=== PATIENT | male | born 1955 | race Caucasian/White ===

== ENCOUNTER 2024-08-22 12:48 | Inpatient (IN) | payer OTHER, MEDICARE ==
[~2024-08-22] VITALS: Ht 177.8 cm; Wt 85.2 kg
[2024-08-22 12:55] VITALS: PULSE 96; RESP 23; O2SAT 97
--- NOTE | 2024-08-22 13:03 | Physician Documentation ---
History of Present Illness ~ Chief Complaint: Shortness of Breath Stated Complaint: LOW O2 Time Seen by MD: 12:51 Mode of Arrival: EMS HPI Nurse triage summary Patria LOPEZ patient presenting for shortness of breath wound on back fluid overloaded on BiPAP glucose was 44 given dextrose by EMS Patient unable to give history due to medical condition Medication Reconciliation Allergies: Coded Allergies: carisoprodol (Verified Allergy, Unknown, 08/22/24) Scheduled Aspirin (Aspir 81), 1 TAB PO DAILY, (Reported) Baclofen (Baclofen), 1 TAB PO Q8H, (Reported) Gabapentin (Gabapentin), 1 TAB PO Q8H, (Reported) Magnesium (Magnesium Oxide), 1 TAB PO DAILY, (Reported) Metoprolol Tartrate (Metoprolol Tartrate), 1 TAB PO Q12H, (Reported) Paroxetine HCl (Paroxetine HCl), 1 TAB PO DAILY, (Reported) Sodium Chloride (SODIUM CHLORIDE tablet), 1 TAB PO Q12H, (Reported) Scheduled PRN Oxycodone Hcl/Acetaminophen 5/325 MG* (Percocet 5/325 MG*), 1 TAB PO TID PRN PRN for pain, (Reported) Miscellaneous Medications Daptomycin (Daptomycin), (Reported) Pantoprazole Sodium (Protonix), 40 MG PO, (Reported) Risperidone (Risperdal), 2 MG PO, (Reported) Review of Systems Unable to obtain complete ROS: altered mental status, medical urgency Physical Exam Vital Signs: Temperature: 97.1, Source: Axillary, Heart Rate: 96, Respiratory Rate: 38, BP: 115/65, Pulse Oximetry: 97, Weight: 72.000 Oxygen Flow Rate: 0 Physical Exam Toxic appearing Diffuse rhonchi Respiratory distress Abdomen is soft nontender MSK open surgical wounds on his back no surrounding cellulitis, serosanguineous drainage Neuro fatigued, arousable moving all extremities Progress Progress Note I Discussed case with Infectious Disease Dr. Minor he is recommending switching daptomycin to vancomycin adding cefepime for hospital-acquired pneumonia I discussed the case with Dr. Mao who is the treating physician at [facility] he reports that the patient was having increasing O2 requirements despite greater than 12 hours on BiPAP and that he does not think the patient is stable enough to return to his facility Results/Orders Results/Orders Orders - MICHEL DEL RIO MD Bipap/Cpap (08/22/24 ) Abg (Arterial Blood Gas) (08/22/24 ) Chest,Single View (08/22/24 ) Culture Blood (08/22/24 13:04) Monitor (08/22/24 13:04) Oxygen (08/22/24 13:04) Saline Lock (08/22/24 13:04) Abg (Arterial Blood Gas) (08/22/24 14:10) Cult Urine + [place] [address] (08/22/24 13:59) Page Hospitalist (08/22/24 16:39) Fill Out Med Reconciliation (08/22/24 16:39) Completed Orders - MICHEL DEL RIO MD Chest,Single View (08/22/24 ) Cbc/Diff (08/22/24 13:04) Procalcitonin (08/22/24 13:04) BMP (08/22/24 13:04) Lacticsepsis (08/22/24 13:04) PBNP (08/22/24 13:15) Troponin (Single) (08/22/24 13:15) Ua W/Microscopic, Cult If Ind (08/22/24 13:12) MG (08/22/24 13:00) PHOS (08/22/24 13:00) Medications Received in ER Medications (Trade) Dose Ordered Sig/Anabella Route PRN Reason Start Time Stop Time Status Last Admin Dose Admin Sodium Chloride 1,000 ml @ 100 mls/hr Q10H IV 08/22/24 17:05 08/22/24 18:00 100 MLS/HR Vital Signs 08/22/24 08/22/24 08/22/24 08/22/24 12:49 12:55 12:56 12:56 Temp 97.1 Pulse 100 96 90 Resp 38 23 26 28 B/P (MAP) 115/65 108/54 (72) Pulse Ox 85 97 97 93 O2 Delivery BiPAP+ O2 Flow Rate 0 FiO2 70 70 70 08/22/24 08/22/24 08/22/24 08/22/24 12:56 14:00 14:45 14:58 Pulse 88 90 89 Resp 38 22 23 27 23 B/P (MAP) 90/54 (66) 101/61 (74) Pulse Ox 98 99 98 FiO2 70 08/22/24 08/22/24 15:30 16:30 Pulse 89 81 Resp 22 22 B/P (MAP) 111/60 (77) 110/66 (81) Pulse Ox 97 98 Laboratory Tests Test 08/22/24 13:00 08/22/24 13:12 08/22/24 14:37 White Blood Count 18.5 H Red Blood Count 2.88 L Hemoglobin 8.1 L Hematocrit 24.5 L Mean Corpuscular Volume 85.4 Mean Corpuscular Hemoglobin 28.1 Mean Corpuscular Hemoglobin Concent 32.9 L Red Cell Distribution Width 16.4 H Platelet Count 360 Mean Platelet Volume 6.8 L Neutrophils (%) (Auto) 93.2 H Lymphocytes (%) (Auto) 2.3 L Monocytes (%) (Auto) 4.3 Eosinophils (%) (Auto) 0 Basophils (%) (Auto) 0.2 Neutrophils # (Auto) 17.3 H Lymphocytes # (Auto) 0.4 L Monocytes # (Auto) 0.8 Eosinophils # (Auto) 0.0 Basophils # (Auto) 0.0 CBC Comment Platelet Estimate Normal Red Blood Cell Morphology Perf Basophilic Stippling Anisocytosis 1+ [place] Cells 2+ Acanthocytes Few Blood Gas Specimen Type Arterial Arterial Blood Gas Puncture Site Lr Rr O2 Saturation 95.2 95.1 Arterial Blood pH (Temp corrected) 7.233 *L 7.313 L Arterial Blood pCO2 (Temp correct) 45.3 38.2 Arterial Blood pO2 (Temp corrected) 83.5 78.1 L Arterial Blood PO2/FiO2 Ratio 1.15 1.08 Arterial Blood HCO3 18.6 L 18.8 L Arterial Blood Base Excess -8.3 L -6.7 L Arterial Blood Oxyhemoglobin 94.7 94.4 Arterial Blood Carboxyhemoglobin 0.2 L 0.4 L Arterial Blood Methemoglobin 0.3 0.3 Arterial Blood Deoxyhemoglobin 4.8 4.9 Naseem Test Modified Modified Blood Gas Hemoglobin 9.2 L 8.7 L Blood Gas Temperature 37.5 37.5 Blood Gas Set Respiration Rate 10 Blood Gas Modality Mask - bipap Mask - bipap FiO2 70.0 70.0 Blood Gas Critical Value Called To dr del rio Sodium Level 126 L Potassium Level 4.6 Chloride Level 98 L Carbon Dioxide Level 21.0 L Anion Gap 7 L Blood Urea Nitrogen 49 H Creatinine 1.28 H Estimated GFR/1.73 m2 56 BUN/Creatinine Ratio 38.3 H Glucose Level 74 Lactic Acid Level 1.0 Calcium Level 7.6 L Phosphorus Level 5.2 H Magnesium Level 1.7 Troponin I High Sensitivity 13 Pro-B-Type Natriuretic Peptide 9277 H Albumin 1.0 L Procalcitonin 2.47 H Chemistry Comments Urine Specimen Description Non-specified Urine Color Yellow Urine Clarity Clear Urine pH 6.0 Urine Specific [place]ovray 1.010 Urine Protein 30 H Urine Glucose (UA) Negative Urine Ketones Negative Urine Occult Blood Moderate H Urine Nitrite Negative Urine Bilirubin Negative Urine Urobilinogen 0.2 Urine Leukocyte Esterase Trace H Urine RBC 10-20 Urine WBC 5-10 H Urine Squamous Epithelial Cells Few Urine Transitional Epithelial Cells Few Urine Bacteria 2+ Urine Hyaline Casts 0-3 Urine Fine Granular Casts 3-5 Urine Yeast Moderate Urine Culture Indicated Indicated Volume Urine Centrifuged 10 ml Urine Comment Microbiology Date/Time Source Procedure Growth Status 08/22/24 13:59 Urine Nonspecified Urine Culture - Preliminary Culture received. Resulted 08/22/24 13:54 Blood Hand Left Blood Culture - Preliminary NEGATIVE (LESS THAN 24 HOURS) Resulted Medical Decision Making Additional info obtained from: old records Additional Infomation CHF, COPD, pneumonia Departure Disposition: ADMITTED INPATIENT Admitted to Inpatient Unit: to hospitalist Impression: Primary Impression: Pneumonia Qualified Codes: J18.9 - Pneumonia, unspecified organism Additional Impression: Respiratory failure Qualified Codes: J96.21 - Acute and chronic respiratory failure with hypoxia Referrals: NO PRIMARY CARE PROVIDER (PCP) Critical Care Note Total Time (mins): 45 Critical Care Note The very real possibility of a deterioration of this patient's condition required the highest level of my preparedness for sudden, emergent intervention. I provided critical care services, which included medication orders, frequent reevaluations of the patient's condition and response to treatment, ordering and reviewing test results, and discussing the case with various consultants. Excludes time spent performing separately billable procedures. The critical care time associated with the care of the patient was 45 minutes in the management of acute hypoxic respiratory failure and pneumonia requiring rescue BiPAP Signature Scribe Signature: jeri Attestation: MICHEL Mir MD August 22, 2024 13:03
[2024-08-22 13:05] LABS: ABG BASE EXCESS -8.3 mmol/L (-2.0-3.0); ABG HCO3 18.6 mmol/L (21.0-28.0); ABG OXYGEN SATURATION 95.2 % (94.0-98.0); ABG PCO2 (T) 45.3 mmHg (35.0-48.0); ABG PH (T) 7.233 (7.350-7.450); ABG PO2 (T) 83.5 mmHg (83.0-108.0); ALLEN'S TEST Modified; FCOHb 0.2 % (0.5-1.5); FHHb 4.8 % (0.0-5.0); FMetHb 0.3 % (0.0-1.5); FO2Hb 94.7 % (94.0-98.0); MODE MASK - BIPAP; PATIENT TEMPERATURE 37.5; RESPIRATORY RATE 10 b/min; TOTAL HEMOGLOBIN 9.2 G/dl (13.5-17.5)
[2024-08-22 13:21] LABS: HEMOGLOBIN 8.1 g/dl (14.0-17.9); MEAN PLATELET VOLUME 6.8 FL (7.4-10.4); RED CELL DISTRIBUTION WIDTH 16.4 % (11.5-14.5); WHITE BLOOD COUNT 18.5 X10'3 (4.5-11.0)
[2024-08-22 13:26] LABS: BASOPHILS % (AUTO) 0.2 % (0-1); EOSINOPHILS % (AUTO) 0 % (0-6); HEMATOCRIT 24.5 % (42.0-52.0); LYMPHOCYTES # (AUTO) 0.4 X10'3 (1.1-4.8); LYMPHOCYTES % (AUTO) 2.3 % (21-51); MEAN CORPUSCULAR HEMOGLOBIN 28.1 PG (27.0-31.0); MEAN CORPUSCULAR HGB CONC 32.9 g/dL (33.0-36.5); MEAN CORPUSCULAR VOLUME 85.4 FL (78-98); MONOCYTES # (AUTO) 0.8 X10'3 (0-0.9); MONOCYTES % (AUTO) 4.3 % (2-12); NEUTROPHILS # (AUTO) 17.3 X10'3 (1.8-7.7); NEUTROPHILS % (AUTO) 93.2 % (42-75); PLATELET COUNT 360 X10'3 (140-440); RED BLOOD COUNT 2.88 X10'6 (4.70-6.10)
[2024-08-22 13:38] LABS: BILIRUBIN,URINE NEGATIVE (Neg); CLARITY,URINE CLEAR (Clear); COLOR,URINE YELLOW (Yellow); GLUCOSE, URINE NEGATIVE (Neg); KETONES,URINE NEGATIVE (Neg); LEUKOCYTE ESTERASE ,URINE TRACE (Neg); NITRITES, URINE NEGATIVE (Neg); OCCULT BLOOD,URINE MODERATE (Neg); PROTEIN,URINE 30 mg/dl (Neg); UROBILINOGEN,URINE 0.2 E.U/dL (0.2-1.0)
--- NOTE | 2024-08-22 13:42 | RADIOLOGY REPORT ---
EXAM: DI CHEST,SINGLE VIEW Indication: sob Technique: Single frontal view of the chest was obtained Comparison: None FINDINGS: Lines and Tubes: Right PICC tip projects over the superior vena cava Lungs: Multifocal consolidative opacities. Pleura: No effusion. No pneumothorax. Cardiomediastinal contours: Unremarkable Bones: No acute osseous abnormality. IMPRESSION: Multifocal consolidative opacities.
[2024-08-22 13:55] LABS: UA COLLECTION TYPE NON-SPECIFIED
[2024-08-22 13:57] LABS: ANION GAP 7 (8-16); BLOOD UREA NITROGEN 49 MG/DL (7-18); BUN/CREATININE RATIO 38.3 (10.0-20.0); CALCIUM 7.6 MG/DL (8.5-10.1); CHLORIDE 98 MMOL/L (99-107); CREATININE 1.28 MG/DL (0.60-1.10); GLUCOSE 74 MG/DL (70-104); POTASSIUM 4.6 MMOL/L (3.5-5.1); PRO BRAIN NATRIURETIC PEPTIDE 9277 PG/ML (0-125); SODIUM 126 MMOL/L (135-145); eCRCL 48 ML/MIN; eGFR 56 ML/MIN
[2024-08-22 13:58] LABS: BACTERIA,URINE 2+ /HPF (Neg); SQUAMOUS EPITHELIAL CELL,UR FEW /LPF (FEW); TRANSITIONAL EPI CELLS,URINE FEW /HPF
[2024-08-22 13:59] LABS: HYALINE CASTS 0-3 /LPF (NEGATIVE); YEAST MODERATE /HPF (NEGATIVE)
[2024-08-22 14:05] LABS: PLATELET ESTIMATE NORMAL
[2024-08-22 14:06] LABS: ACANTHOCYTES FEW; ANISOCYTOSIS 1+; BURR CELLS 2+
[2024-08-22 14:42] LABS: ABG BASE EXCESS -6.7 mmol/L (-2.0-3.0); ABG HCO3 18.8 mmol/L (21.0-28.0); ABG OXYGEN SATURATION 95.1 % (94.0-98.0); ABG PCO2 (T) 38.2 mmHg (35.0-48.0); ABG PH (T) 7.313 (7.350-7.450); ABG PO2 (T) 78.1 mmHg (83.0-108.0); ALLEN'S TEST Modified; FCOHb 0.4 % (0.5-1.5); FHHb 4.9 % (0.0-5.0); FMetHb 0.3 % (0.0-1.5); FO2Hb 94.4 % (94.0-98.0); MODE MASK - BIPAP; PATIENT TEMPERATURE 37.5; TOTAL HEMOGLOBIN 8.7 G/dl (13.5-17.5)
[2024-08-22 14:45] VITALS: PULSE 90; RESP 23; O2SAT 99
[2024-08-22] MEDS ORDERED: SODI1TAB2 PO (16:56)
[2024-08-22] MEDS ORDERED: PER5325T PO (16:56)
[2024-08-22] MEDS ORDERED: GABA-1405 PO (16:56)
[2024-08-22] MEDS ORDERED: PARO40TA4 PO (16:56)
[2024-08-22] MEDS ORDERED: MAGN200T5 PO (16:56)
[2024-08-22] MEDS ORDERED: DAPT500V18 IV (16:56)
[2024-08-22] MEDS ORDERED: RISP2TAB97 PO (16:56)
[2024-08-22] MEDS ORDERED: BACL10TA2 PO (16:56)
[2024-08-22] MEDS ORDERED: PANT40SU2 PO (16:56)
[2024-08-22] MEDS ORDERED: METO25TA6 PO (16:56)
[2024-08-22] MEDS ORDERED: ASPI-611 PO (16:56)
[2024-08-22] MEDS ORDERED: potassium Cl 20 mEq SR tablet PO PRN ×2 (17:05)
[2024-08-22] MEDS ORDERED: magnesium hydroxide 30ml (MOM) UD suspension PO PRN (17:05)
[2024-08-22] MEDS ORDERED: potassium Cl 40MEQ/1/2NS 520ml 520 ML IV PRN (17:05)
[2024-08-22] MEDS ORDERED: bisacodyl 10mg suppository rectal RC PRN (17:05)
[2024-08-22] MEDS ORDERED: ondansetron 4mg rapidly disintigrating tab PO PRN (17:05)
[2024-08-22] MEDS ORDERED: diphenhydrAMINE 25mg capsule PO PRN (17:05)
[2024-08-22] MEDS ORDERED: acetaminophen 325mg tablet PO PRN ×2 (17:05)
[2024-08-22] MEDS ORDERED: ipratropium/albuterol 3ml nebule NEB PRN (17:05)
[2024-08-22] MEDS ORDERED: magnesium sulf-water 4G/100mL 100 ML IV PRN (17:05)
[2024-08-22] MEDS ORDERED: acetaminophen 650mg rectal suppository RC PRN (17:05)
[2024-08-22] MEDS ORDERED: mag hydrox/Alum hydrox/simeth 30ml oral suspension PO PRN (17:05)
[2024-08-22] MEDS ORDERED: magnesium sulf-water 2g/50mL 50 ML IV PRN (17:05)
[2024-08-22] MEDS ORDERED: HYDROcodone/acetaminophen 10/325mg tab PO PRN (17:05)
[2024-08-22] MEDS ORDERED: diphenhydrAMINE 50 mg/ml inj IV PRN (17:05)
[2024-08-22] MEDS ORDERED: morphine 2 MG/ML inj. syringe IV PRN (17:05)
[2024-08-22] MEDS ORDERED: magnesium Cl slow-release 64mg tablet PO PRN (17:05)
[2024-08-22] MEDS ORDERED: HYDROcodone/acetaminophen 5mg/325mg tablet PO PRN (17:05)
[2024-08-22] MEDS ORDERED: ondansetron/PF 4mg/2ml inj IV PRN (17:05)
--- NOTE | 2024-08-22 17:05 | HISTORY AND PHYSICAL ---
History & Physical Providers to Chief complaint, shortness of breath ~ History of Present Illness Reason for Admit\Complaint: As above History of Present Illness This is a 69 years old gentleman with a history of multiple medical problems including anemia hemoglobin 8.1, history of chronic kidney disease, diabetes mellitus type 2, hypertension, CHF ejection fraction unknown, hypoalbuminemia, chronic pain syndrome, hypertension over treated, associated now with hypovolemia and hypotension, history of GERD, diabetes mellitus type 2, presented today to emergency department chief complaint shortness of breath; in addition this is the patient who according to Nurse triage summary Patria LOPEZ patient presenting for shortness of breath wound on back fluid overloaded on BiPAP glucose was 44 given dextrose by EMS. In emergency department he was evaluated by physician, was diagnosed with sepsis bilateral pneumonia started on BiPAP and decision was made to admit patient for further evaluation and treatment. No additional complaint or concern Dr. so infectious Disease was consulted patient started on vancomycin and cefepime. Allergies: Coded Allergies: carisoprodol (Verified Allergy, Unknown, 08/22/24) Active prescriptions I reviewed reconciled Home Medications Home Medications Active Reported SODIUM CHLORIDE tablet (Sodium Chloride) 1,000 Mg Tablet 1 Tab PO Q12H 30 Days Risperdal (Risperidone) 2 Mg Tablet 2 Mg PO Paroxetine HCl 40 Mg Tablet 1 Tab PO DAILY 30 Days Protonix (Pantoprazole Sodium) 40 Mg Suspdr.pkt 40 Mg PO Percocet 5/325 MG* (Oxycodone/Acetaminophen) 5 Mg/325 Mg Tablet 1 Tab PO TID PRN PRN 5 Days Metoprolol Tartrate 25 Mg Tablet 1 Tab PO Q12H 30 Days Magnesium Oxide (Magnesium) 200 Mg Tablet 1 Tab PO DAILY 30 Days Gabapentin 600 Mg Tablet 1 Tab PO Q8H 30 Days Daptomycin 500 Mg Vial Baclofen 10 Mg Tablet 1 Tab PO Q8H 30 Days Aspir 81 (Aspirin) 81 Mg Tablet. 1 Tab PO DAILY 30 Days Past Medical History Past Medical History As in HPI Past Surgical History Surgical History Comment As in HPI Past Social History Social History Comment Deny illicit drug abuse tobacco alcohol use live with the family good social support Health Maintenance Health Maintenance Noncontributory ROS ROS Constitutional : no fever , no chills, or weakness. No diaphoresis. Allergic/Immunologic, no lymphadenopathy, no hives, no skin eruptions. Eyes, no recent visual changes, no eye pain, no photophobia. Ears, nose, mouth, throat, no sore throat, no nosebleed, no ear pain. Cardiovascular, no palpitations, skipped beats, chest pain, no peripheral edema, Respiratory, positive for dyspnea, orthopnea, cough, no hemoptysis, chest wall pain. Gastrointestinal, no abdominal pain, nausea, vomiting, constipation or diarrhea. : no dysuria, hematuria, pelvic pain, urethral d/c. Endocrine, no polyuria, polydipsia, recent unintentional weight gain or loss. Hematologic/Lymphatic, no petechiae, no enlarged lymph nodes, no bone pain. Integumentary, no rash, no skin lesions, Musculoskeletal, no muscle aches, or pain, no muscle cramps, no recent change in gait Neurological, no dizziness, no headache, no syncope, no paresthesia. Psychiatric, no delusions, visual hallucinations, or hearing hallucinations. ROS - in rest is as in HPI. Exam Vitals: Vital Signs Date Time Temp Pulse Resp B/P (MAP) Pulse Ox O2 Delivery O2 Flow Rate FiO2 08/22/24 16:30 81 22 110/66 (81) 98 08/22/24 14:45 70 08/22/24 12:56 BiPAP+ 08/22/24 12:49 97.1 0 Vital signs, stable ,afebrile. Pulse Oximetry reflects adequate oxygenation on BiPAP, FiO2 70%. BMI is 26, weight 72 kg General: well developed, well nourished. Awake , alert, and oriented x4, resting comfortably in the bed, in no acute distress . Skin: Warm, dry, no pallor, no rash or petechiae. HEENT: Atraumatic, normocephalic, EOMI, anicteric sclera B; pink conjunctiva; PERRLA, normal oropharynx, moist oral and nasal mucosa. Tympanic membrane , nose , throat clear. Neck: Trachea midline. Supple, full range of motion, no JVD, bruit , hepatojugular reflex , lymphadenopathy or masses, or other lesions Cardiac: Regular rhythm, regular rate no murmurs, rubs, or gallops. Normal S1 and S2, no S3 noticed. PMI is normal. Respiratory: Equal breath sounds bilaterally, no tachypnea; lungs clear to auscultation bilaterally, no wheezing ,rub or rales, or crackles. Chest wall is symmetric and without deformity. No signs of trauma. Chest wall is nontender. No signs of respiratory distress. Resonance is normal upon percussion bilaterally. Gastrointestinal: Abdomen symmetric, non-distended, soft, non-tender, normal bowel sounds x4 quadrant, normoactive, no hepatosplenomegaly , no masses , no bruit, no flank pain bilaterally. No voluntary guarding, rebound, or rigidity. No tenderness to percussion. No pulsatile masses. Equal femoral pulses. No Bautista's sign or McBurney point tenderness. Back; no CVA tenderness bilaterally, no deformities. Neck and back are without deformity as well. No tenderness noted on palpation of the spinous processes. Spinous processes are midline. Cervical, thoracic, and lumbar paraspinal muscles are not tender and are without spasm. : normal external genitalia, without lesions, swelling, masses or tenderness. Musculoskeletal: Extremities, normal range of motion, non-tender, muscle strength 5/5 x 4. Negative Homans signs bilaterally on lower extremity. Distal pulses full symmetrical, no clubbing, cyanosis , edema. Neurological: Speech is clear, alert, and oriented x 4. No motor or sensory deficit, deep tendon reflexes normal, cerebellar intact. Cranial nerves II-XII intact. Psych: Alert and or appropriate, normal affect. Vascular: Good distal pulses, which are equal x4; capillary refill less than 2 seconds. Lymphatic, no lymphadenopathy. Diagnostic Data Last Recorded Lab Results: 08/22/24 1300 08/22/24 1300 Advance Care Planning Advanced Care plannin - 30 Minutes Additional Plan Assessment Bilateral pneumonia, community-acquired mixed kenneth Gram-positive Gram-negative Sepsis Diabetes mellitus type 2 poor control Acute respiratory failure secondary to hypoxia Hyponatremia UTI complicated A right side posterior chest abscess CHF ejection fraction unknown in exacerbation Hypovolemia associated with hypotension Chronic pain syndrome Additional comorbidities, history of chronic kidney disease anemia hemoglobin 8.1 decubitus hypo glycemia, Plan IV fluids antibiotics keep patient well hydrated euvolemic Hyperglycemia sliding scale Patient is on BiPAP SVN DuoNeb, incentive spirometry Correct electrolytes Wound care consult Echocardiography pending PT evaluation and treatment Dr. So infectious disease is on the case Reconciled home medications DVT gastropathy prophylaxis addressed Sepsis Screening Reassessment Date: August 22, 2024 Date of Service: August 22, 2024 Billing Provider: VIRGILIO STEVENS MD Common Visit Codes: 38110-EZA/OBS SAME DATE (HIGH) Secondary Visit Codes: 96249-ZDGAWPQN CARE PLAN 30 MINUTES VIRGILIO STEVENS MD August 22, 2024 17:05
[2024-08-22] MEDS ORDERED: glucagon, human recombinant 1mg kit SUBCUT PRN (17:45)
[2024-08-22] MEDS ORDERED: DEXTROSE 15 GM of carb/4 tabs (each vial/BOTTLE has 4 tablets) PO PRN ×2 (17:45)
[2024-08-22 17:50] LABS: MAGNESIUM 1.7 MG/DL (1.5-2.4); PHOSPHORUS 5.2 MG/DL (2.3-4.5)
[2024-08-22] MEDS: INSULIN LISPRO 100 UNIT/ML INSULN.PEN MULTI-DOSE SQ SCH ×2 (17:59→21:00)
[2024-08-22] MEDS: normal saline 1000ml 1,000 ML IV SCH (18:00)
[2024-08-22] MEDS: VANCOMYCIN 1.75GM/WATER FOR INJ (PEG) 350 ML IVPB IV ONE (18:11)
[2024-08-22 18:51] LABS: APTT 36 SECONDS (22-32); PROTHROMBIN TIME 10.5 SECONDS (9.0-12.0)
[2024-08-22 19:35] VITALS: PULSE 88; RESP 28; O2SAT 98
[2024-08-22] MEDS: docusate sod 100mg capsule PO SCH (20:00)
[2024-08-22] MEDS ORDERED: VANCOMYCIN 1GM 200ML H20 (PEG) 200 ML IV SCH (20:00)
[2024-08-22] MEDS: K and/or MAG REPLACEMENT MC SCH (20:00)
[2024-08-22 20:46] LABS: THYROID STIMULATING HORMONE 1.83 ulU/ml (0.34-4.50)
[2024-08-22] MEDS ORDERED: temazepam 15mg capsule PO PRN (21:00)
[2024-08-22] MEDS: dextrose 50%-water 50ml dispensing syringe IV PRN ×2 (21:18→21:21)
[2024-08-22] MEDS: cefepime 1GM in D5W 50mL 50 ML IV SCH (21:22)
[2024-08-22] MEDS: heparin, porcine 5000 units/ml vial SQ SCH (21:23)
--- NOTE | 2024-08-22 21:30 | RADIOLOGY REPORT ---
Clinical History sepsis Comparison None Technique: All CT scans at this medical facility are performed using dose modulation techniques as appropriate t o a performed exam including the following: Automated exposure control was utilized; adjustment of th e mA and/or kV according to patient size; and use of iterative reconstruction technique. All CT studies are reported to the Dose Index Registry of the [employer]. Without Contrast Radiation Dose: CTDI (mGy): 17.4; DLP (mGy-cm): 686.02 STERLINGJEFFRY, [id number] Findings: license examiner: none Mediastinum: Multiple borderline enlarged mediastinal and hilar lymph nodes, the largest measures 1 c m, likely representing reactive lymph nodes. Atherosclerotic calcification of coronary arteries. Th e major mediastinal vascular structures are otherwise unremarkable. The heart and pericardium are unr emarkable. The esophagus is unremarkable. Thoracic wall: Bilateral lower thoracic and upper abdominal posterior wall skin laceration with subcu taneous emphysema, clinical correlation to evaluate for large stress ulcer is recommended. Superfici al subcutaneous soft tissue edema. Bilateral gynecomastia. Lungs: Extensive bilateral multifocal pulmonary groundglass and consolidative opacities with air bron chograms. Mild right and small left pleural effusion with adjacent atelectasis. The major airways a re unremarkable. No pneumothorax. Upper abdomen: Nodular hepatic surface. Multiple calcified gallstones. Diffuse pancreatic atrophy. Ascites Musculoskeletal: No acute osseous abnormality. Postsurgical changes related to lower thoracolumbar p osterior fusion. Degenerative changes of the imaged skeleton. Impression: Extensive multifocal bilateral pneumonia. Bilateral lower thoracic and upper abdominal posterior wall skin laceration with subcutaneous emphyse ma, clinical correlation to evaluate for large stress ulcer is recommended This report was electronically signed by Heidi Montana MD on 08/22/2024 9:28:11 PM.
[2024-08-22 23:17] VITALS: PULSE 99; O2SAT 93
[2024-08-22] MEDS: morphine 2 MG/ML inj. syringe IV PRN (23:28)
[2024-08-23] VITALS (34 sets, daily range): BP systolic 84–137; BP diastolic 40–70; PULSE 83–104; RESP 24–31; O2SAT 94–100
[2024-08-23] MEDS: albumin (human) 25% 100 ML IV solution IV ONE ×2 (00:01→03:31)
[2024-08-23] MEDS: normal saline 1000ml 1,000 ML IV ONE (00:36)
[2024-08-23 01:09] LABS: ABG BASE EXCESS -8.8 mmol/L (-2.0-3.0); ABG HCO3 16.9 mmol/L (21.0-28.0); ABG OXYGEN SATURATION 93.4 % (94.0-98.0); ABG PCO2 (T) 36.1 mmHg (35.0-48.0); ABG PO2 (T) 69.8 mmHg (83.0-108.0); FCOHb 0.8 % (0.5-1.5); FHHb 6.5 % (0.0-5.0); FMetHb 0.3 % (0.0-1.5); FO2Hb 92.4 % (94.0-98.0); MODE MASK - BIPAP; PATIENT TEMPERATURE 37.2; RESPIRATORY RATE 10 b/min
[2024-08-23 02:09] LABS: BASOPHILS % (AUTO) 0.1 % (0-1); EOSINOPHILS % (AUTO) 0 % (0-6); HEMATOCRIT 22.6 % (42.0-52.0); HEMOGLOBIN 7.4 g/dl (14.0-17.9); LYMPHOCYTES # (AUTO) 0.6 X10'3 (1.1-4.8); LYMPHOCYTES % (AUTO) 3.4 % (21-51); MEAN CORPUSCULAR HEMOGLOBIN 28.3 PG (27.0-31.0); MEAN CORPUSCULAR HGB CONC 32.5 g/dL (33.0-36.5); MEAN CORPUSCULAR VOLUME 86.9 FL (78-98); MEAN PLATELET VOLUME 6.6 FL (7.4-10.4); MONOCYTES % (AUTO) 5.6 % (2-12); NEUTROPHILS # (AUTO) 15.7 X10'3 (1.8-7.7); NEUTROPHILS % (AUTO) 90.9 % (42-75); PLATELET COUNT 319 X10'3 (140-440); RED CELL DISTRIBUTION WIDTH 16.7 % (11.5-14.5); WHITE BLOOD COUNT 17.3 X10'3 (4.5-11.0)
[2024-08-23] MEDS ORDERED: ipratropium/albuterol 3ml nebule NEB PRN (02:10)
[2024-08-23 02:26] LABS: ALANINE AMINOTRANSFERASE 23 U/L (12-78); ALBUMIN 1.4 G/DL (3.4-5.0); ALBUMIN/GLOBULIN RATIO 0.3 (1.1-1.5); ALKALINE PHOSPHATASE 200 IU/L (46-116); ANION GAP 12 (8-16); ASPARTATE AMINO TRANSFERASE 15 U/L (10-37); BILIRUBIN,TOTAL 0.3 MG/DL (0.1-1.0); BLOOD UREA NITROGEN 48 MG/DL (7-18); CALCIUM 7.5 MG/DL (8.5-10.1); CHLORIDE 98 MMOL/L (99-107); CREATININE 1.37 MG/DL (0.60-1.10); GLUCOSE 97 MG/DL (70-104); MAGNESIUM 1.7 MG/DL (1.5-2.4); POTASSIUM 4.4 MMOL/L (3.5-5.1); SODIUM 129 MMOL/L (135-145); TOTAL CARBON DIOXIDE 18.9 MMOL/L (24-32); TOTAL PROTEIN 5.5 G/DL (6.4-8.2); eCRCL 45 ML/MIN; eGFR 52 ML/MIN
[2024-08-23 03:23] LABS: OSMOLALITY 275 MOSM/K (280-300)
[2024-08-23] MEDS: furosemide 40mg/4ml inj IV ONE (03:31)
[2024-08-23] MEDS: ipratropium/albuterol 3ml nebule NEB SCH (03:42)
[2024-08-23] MEDS: sodium bicarbonate (8.4%) inj. 150 MEQ in dextrose 5%-water 1,000 ML IV SCH (03:50)
[2024-08-23 04:01] LABS: % IRON SATURATION 5 % (11-46); IRON 5 UG/DL (53-167); TOTAL IRON BINDING CAPACITY 107 UG/DL (259-388)
[2024-08-23 04:03] LABS: SODIUM,URINE RANDOM < 15 MEQ/L; TOTAL PROTEIN,URINE RANDOM 226.1 MG/DL
[2024-08-23 04:05] LABS: FERRITIN 210 NG/ML (26-388)
--- NOTE | 2024-08-23 04:08 | PROGRESS NOTE ---
Progress Note Dictate Providers to CC ~Patient called by residents due to worsening respiratory status. Patient previously admitted to the medical floor and was boarding in the ED at that time. Evaluated with the help of residents and RN with HIPAA compliant A/V technology that was two-way communicating. Progress Note: Reviewed H&P by the resident's team. Reviewed labs. Has leukocytosis white count of 17K Hemoglobin down at 7.4 normal platelets. Sodium down at 129 BUN/creatinine 48 and 1.37. Interestingly his albumin is only 1.4 with an alkaline phosphatase of 200. No hypercalcemia noted. Urine has RBCs WBCs and proteins. Most recent ABG showed metabolic acidosis with hypoxia 7.29 and PaO2 of 70. I reviewed chest x-ray and CAT scan. Antibiotic Ordered?: N/A MRSA Education MRSA Education Provided to pt: N/A Objective Vitals Vital Signs Date Time Temp Pulse Resp B/P (MAP) Pulse Ox O2 Delivery O2 Flow Rate FiO2 08/23/24 03:49 98 24 Bi-pap 80 08/23/24 03:46 97 08/23/24 02:45 100/51 (67) 08/23/24 00:06 98.0 08/22/24 12:49 0 Lab Results: 08/23/24 0157 08/23/24 0157 Objective Was having increased work of breathing. But was able to obey commands. He appeared very pale He was on BiPAP He has appeared swollen. His cardiac rhythm seems normal Coagulation Studies Laboratory Tests Test 08/22/24 18:16 Prothrombin Time 10.5 SECONDS (9.0-12.0) INR International Normalized Ratio 1.0 INR Activated Partial Thromboplast Time 36 SECONDS (22-32) H Coagulation Comments Counseling Services Smoking & Tobacco Cessation: N/A Advance Care Planning Advanced Care planning: N/A Problem\Assessment\Plan Additional Plan 1. Sepsis 2. Multifocal pneumonia 3. Decubiti lower back 4. Anemia of chronic disease 5. Hyponatremia 6. NICHOLAS 7. Leukocytosis 8. Metabolic acidosis Plan He will be admitted to the intensive care unit. Will continue BiPAP support and add a low-dose of Precedex to improve with his work of breathing and when comfort. Surgical evaluation/wound care evaluation for the decubiti Continue on broad-spectrum antibiotics as now. Gently hydrate with bicarb drip At 50 mL/h May need diuretic support if blood pressure tolerates and urine output does not diamond picker with conservative care Type and cross and may need transfusion if anemia worsens Will will need conversation with family regarding goals of care May require intubation if respiratory status worsens. Discussed with the team. Talked to the ICU nurses also updated on my plan. ANANDA MINAYA MD August 23, 2024 04:08
[2024-08-23 04:22] LABS: OSMOLALITY UA 320 MOSM/K (50-1400)
--- NOTE | 2024-08-23 04:27 | RADIOLOGY REPORT ---
EXAM: DI CHEST,SINGLE VIEW HISTORY: central line COMPARISON: DI CHEST,SINGLE VIEW on DOS: 08/22/24, chest CT dated 08/22/2024 TECHNIQUE: Portable semi-erect AP view of the chest was performed. FINDINGS: There are diffuse extensive bilateral pulmonary infiltrates, similar to that seen previously. No pneu mothorax. The heart is not enlarged. There has been interval placement of a right IJ central line wit h its tip in the SVC -RA junction. Right upper extremity PICC line and postoperative changes of thor acolumbar posterior fusion are re-identified. There are skin venkata overlying the midline chest. IMPRESSION: 1. Diffuse bilateral pulmonary infiltrates consistent with pneumonia, similar to that seen on chest i maging from the previous day. 2. New right IJ central line in good position without pneumothorax.
[2024-08-23] MEDS: vancomycin/NS 1 GM ADD-VANTAGE 250 ML IV SCH (06:43)
[2024-08-23] MEDS: pantoprazole 40mg Tablet.DR PO SCH (07:28)
[2024-08-23] MEDS ORDERED: rocuronium 10mg/ml inj IV ONE (08:00)
[2024-08-23] MEDS: etomidate 2mg/ml inj. IV ONE (11:25)
[2024-08-23] MEDS: rocuronium 10mg/ml inj IV ONE (11:25)
[2024-08-23] MEDS: propofol 1000mg/100ml bottle 100 ML IV SCH (11:25)
[2024-08-23] MEDS: FENTANYL-0.9 % NACL/PF 100 ML IV SCH (11:25)
[2024-08-23] MEDS: NORepinephrine 8mg/ 250ml NS 250 ML IV ONE (11:33)
--- NOTE | 2024-08-23 12:07 | RADIOLOGY REPORT ---
CHEST RADIOGRAPH Indication: POST INTUBATION Technique: Single frontal view of the chest was obtained Comparison: DI CHEST,SINGLE VIEW on DOS: 08/23/24, DI CHEST,SINGLE VIEW on DOS: 08/22/24 FINDINGS: Right IJ catheter tip in the SVC. Endotracheal tube tip projects 1.6 cm above the estephanie. The cardiac silhouette is enlarged. The lungs demonstrate diffuse bilateralairspace opacities. The pu lmonary vasculature is prominent., which is increased from the previous examination Small to moderate left and small right pleural effusions. There is no pneumothorax. Old mid left clavicular fracture d eformity. IMPRESSION: 1. .As above
[2024-08-23] MEDS: FENTANYL-0.9 % NACL/PF 100 ML ONE (12:37)
[2024-08-23] MEDS: LIDOcaine 1%/PF 5ML 10 MG/ML VIAL ONE (12:40)
[2024-08-23] MEDS: ascorbic acid 500mg tablet OGT SCH (12:48)
[2024-08-23] MEDS ORDERED: acetaminophen 325mg/10.15ml oral unit dose solution OGT PRN ×2 (12:51)
[2024-08-23] MEDS ORDERED: DEXTROSE 15 GM of carb/4 tabs (each vial/BOTTLE has 4 tablets) OGT PRN ×2 (12:51)
[2024-08-23] MEDS ORDERED: diphenhydrAMINE 25 MG/10 ML UD oral solution OGT PRN (12:52)
[2024-08-23] MEDS ORDERED: mag hydrox/Alum hydrox/simeth 30ml oral suspension OGT PRN (12:53)
[2024-08-23] MEDS ORDERED: magnesium hydroxide 30ml (MOM) UD suspension OGT PRN (12:54)
[2024-08-23] MEDS ORDERED: ondansetron 4mg rapidly disintigrating tab OGT PRN (12:54)
[2024-08-23] MEDS ORDERED: POTASSIUM CHLORIDE 20 MEQ/15 ML oral solution OGT PRN ×2 (12:56→13:00)
[2024-08-23] MEDS ORDERED: HYDROcodone/acetaminophen 7.5MG/325MG per 15ml UD CUP PO PRN (12:57)
[2024-08-23] MEDS ORDERED: temazepam 15mg capsule OGT PRN (12:57)
[2024-08-23] MEDS ORDERED: HYDROcodone/acetaminophen 7.5MG/325MG per 15ml UD CUP OGT PRN ×3 (12:58→12:59)
[2024-08-23 14:04] LABS: BASOPHILS # (AUTO) 0.1 X10'3 (0-0.2); BASOPHILS % (AUTO) 0.3 % (0-1); EOSINOPHILS % (AUTO) 0 % (0-6); HEMATOCRIT 23.8 % (42.0-52.0); HEMOGLOBIN 7.8 g/dl (14.0-17.9); LYMPHOCYTES # (AUTO) 0.5 X10'3 (1.1-4.8); LYMPHOCYTES % (AUTO) 2.4 % (21-51); MEAN CORPUSCULAR HEMOGLOBIN 28.4 PG (27.0-31.0); MEAN CORPUSCULAR HGB CONC 32.7 g/dL (33.0-36.5); MEAN CORPUSCULAR VOLUME 86.8 FL (78-98); MONOCYTES # (AUTO) 1.1 X10'3 (0-0.9); MONOCYTES % (AUTO) 5.6 % (2-12); NEUTROPHILS # (AUTO) 18.2 X10'3 (1.8-7.7); NEUTROPHILS % (AUTO) 91.7 % (42-75); PLATELET COUNT 391 X10'3 (140-440); RED BLOOD COUNT 2.74 X10'6 (4.70-6.10); RED CELL DISTRIBUTION WIDTH 16.8 % (11.5-14.5); WHITE BLOOD COUNT 19.8 X10'3 (4.5-11.0)
[2024-08-23 14:13] LABS: ABG BASE EXCESS -13.1 mmol/L (-2.0-3.0); ABG HCO3 15.6 mmol/L (21.0-28.0); ABG OXYGEN SATURATION 96.1 % (94.0-98.0); ABG PCO2 (T) 48.2 mmHg (35.0-48.0); ABG PH (T) 7.124 (7.350-7.450); ABG PO2 (T) 84.9 mmHg (83.0-108.0); FHHb 3.8 % (0.0-5.0); FMetHb 0.3 % (0.0-1.5); FO2Hb 94.9 % (94.0-98.0); MODE VENT - prvc; PATIENT TEMPERATURE 36.3; PEEP 18 cm H2O; RESPIRATORY RATE 30 b/min; TIDAL VOLUME 300 mL; TOTAL HEMOGLOBIN 8.8 G/dl (13.5-17.5)
[2024-08-23 14:15] LABS: ALANINE AMINOTRANSFERASE 21 U/L (12-78); ALBUMIN 1.6 G/DL (3.4-5.0); ALBUMIN/GLOBULIN RATIO 0.4 (1.1-1.5); ALKALINE PHOSPHATASE 199 IU/L (46-116); ANION GAP 12 (8-16); ASPARTATE AMINO TRANSFERASE 20 U/L (10-37); BILIRUBIN,TOTAL 0.4 MG/DL (0.1-1.0); BLOOD UREA NITROGEN 50 MG/DL (7-18); BUN/CREATININE RATIO 33.3 (10.0-20.0); CALCIUM 7.6 MG/DL (8.5-10.1); CHLORIDE 97 MMOL/L (99-107); GLUCOSE 176 MG/DL (70-104); MAGNESIUM 1.9 MG/DL (1.5-2.4); PHOSPHORUS 6.4 MG/DL (2.3-4.5); SODIUM 128 MMOL/L (135-145); TOTAL CARBON DIOXIDE 19.1 MMOL/L (24-32); TOTAL PROTEIN 5.7 G/DL (6.4-8.2); eCRCL 41 ML/MIN; eGFR 47 ML/MIN
[2024-08-23 14:22] LABS: POTASSIUM 4.9 MMOL/L (3.5-5.1)
[2024-08-23] MEDS: sodium bicarbonate (8.4%) 1 mEq/ml syringe ONE (14:37)
[2024-08-23] MEDS: propofol 1000mg/100ml bottle 100 ML IV ONE (14:39)
[2024-08-23] MEDS: sodium bicarbonate (8.4%) 1 mEq/ml syringe IV ONE (14:46)
--- NOTE | 2024-08-23 14:49 | PROGRESS NOTE ---
Daily Progress Note Providers to CC Patient intubated sedated FiO2 80% ~ Central Line/PICC still needed: Yes Mir-Non Protocol Mir Indications Met/Not Met: F/C Indications Met Antibiotic Timeout Antibiotic Ordered?: Yes MRSA Education MRSA Education Provided to pt: Yes Subjective As above Objective Vital Signs Date Time Temp Pulse Resp B/P (MAP) Pulse Ox O2 Delivery O2 Flow Rate FiO2 08/23/24 14:44 104 30 Mechanical Ventilator 50 08/23/24 14:39 98 08/23/24 11:33 117/60 08/23/24 10:00 97.0 08/23/24 07:32 0 Vital signs, stable ,afebrile. Pulse Oximetry reflects adequate oxygenation on ventilator sedated FiO2 50-70% General: well developed, well nourished. Sedated, comfortably in the bed, in no acute distress . Skin: Warm, dry, no pallor, no rash or petechiae. Massive decubitus on the back present HEENT: Atraumatic, normocephalic, EOMI, anicteric sclera B; pink conjunctiva; PERRLA, normal oropharynx, moist oral and nasal mucosa. Tympanic membrane , nose , throat clear. Neck: Trachea midline. Supple, full range of motion, no JVD, bruit , hepatojugular reflex , lymphadenopathy or masses, or other lesions Cardiac: Regular rhythm, regular rate no murmurs, rubs, or gallops. Normal S1 and S2, no S3 noticed. PMI is normal. Respiratory: Equal breath sounds bilaterally, no tachypnea; lungs clear to auscultation bilaterally, no wheezing ,rub or rales, or crackles. Chest wall is symmetric and without deformity. No signs of trauma. Chest wall is nontender. No signs of respiratory distress. Resonance is normal upon percussion bilaterally. Gastrointestinal: Abdomen symmetric, non-distended, soft, non-tender, normal bowel sounds x4 quadrant, normoactive, no hepatosplenomegaly , no masses , no bruit, no flank pain bilaterally. No voluntary guarding, rebound, or rigidity. No tenderness to percussion. No pulsatile masses. Equal femoral pulses. No Bautista's sign or McBurney point tenderness. Back; no CVA tenderness bilaterally, no deformities. Neck and back are without deformity as well. No tenderness noted on palpation of the spinous processes. Spinous processes are midline. Cervical, thoracic, and lumbar paraspinal muscles are not tender and are without spasm. : normal external genitalia, without lesions, swelling, masses or tenderness. Musculoskeletal: Extremities, normal range of motion, non-tender, muscle strength 5/5 x 4. Negative Homans signs bilaterally on lower extremity. Distal pulses full symmetrical, no clubbing, cyanosis , edema. Neurological: Sedated, on ventilator, No motor or sensory deficit, deep tendon reflexes normal, cerebellar intact. Cranial nerves II-XII intact. Psych: Sedated Vascular: Good distal pulses, which are equal x4; capillary refill less than 2 seconds. Lymphatic, no lymphadenopathy. Result Diagram: 08/23/24 1330 08/23/24 1330 Coagulation Studies Laboratory Tests Test 08/22/24 18:16 Prothrombin Time 10.5 SECONDS (9.0-12.0) INR International Normalized Ratio 1.0 INR Activated Partial Thromboplast Time 36 SECONDS (22-32) H Coagulation Comments Problem\Assessment\Plan Assessment Bilateral pneumonia, community-acquired mixed kenneth Gram-positive Gram-negative Sepsis Diabetes mellitus type 2 poor control Acute respiratory failure secondary to hypoxia Hyponatremia UTI complicated A right side posterior chest abscess CHF ejection fraction unknown in exacerbation Hypovolemia associated with hypotension Chronic pain syndrome Additional comorbidities, history of chronic kidney disease anemia hemoglobin 8.1, back decubitus, hypo glycemia, Plan IV fluids antibiotics keep patient well hydrated euvolemic, sedated on ventilator Hyperglycemia sliding scale Patient is on ventilator, sedated SVN DuoNeb, incentive spirometry Correct electrolytes Wound care Echocardiography completed PT evaluation and treatment Dr. Minor infectious disease is on the case Reconciled home medications DVT gastropathy prophylaxis addressed Sepsis Screening Reassessment Date: August 23, 2024 Date of Service: August 23, 2024 Billing Provider: VIRGILIO STEVENS MD Common Visit Codes: [id number] INP/OBS CARE(HIGH) VIRGILIO STEVENS MD August 23, 2024 14:49
[2024-08-23] MEDS ORDERED: ASPI-920 PO (15:12)
[2024-08-23] MEDS ORDERED: FURO-150 PO (15:12)
[2024-08-23] MEDS ORDERED: LANTUS SUBCUT (15:12)
[2024-08-23] MEDS ORDERED: LORA10TA7 PO (15:12)
[2024-08-23] MEDS ORDERED: HYDR1LIQ5 IV (15:12)
[2024-08-23] MEDS ORDERED: ZOLP5TAB8 PO (15:12)
[2024-08-23] MEDS ORDERED: PER5325T PO ×2 (15:12)
[2024-08-23] MEDS ORDERED: INSU100I61 SQ (15:12)
[2024-08-23] MEDS ORDERED: ALB0.5UD IH ×2 (15:12)
[2024-08-23] MEDS ORDERED: DOCU283E RC (15:12)
[2024-08-23] MEDS ORDERED: PANT-47 PO (15:12)
[2024-08-23] MEDS ORDERED: LIDO120C7 TOP (15:12)
[2024-08-23] MEDS ORDERED: DICL20GE TOP (15:12)
[2024-08-23] MEDS ORDERED: POLY17PO10 PO (15:12)
[2024-08-23] MEDS ORDERED: DIPH25CA52 PO (15:12)
[2024-08-23] MEDS: cefepime 1GM in D5W 50mL 50 ML IV SCH (16:40)
[2024-08-23 16:58] LABS: ABG BASE EXCESS -8.6 mmol/L (-2.0-3.0); ABG HCO3 19.3 mmol/L (21.0-28.0); ABG OXYGEN SATURATION 99.3 % (94.0-98.0); ABG PCO2 (T) 51.4 mmHg (35.0-48.0); ABG PH (T) 7.189 (7.350-7.450); ABG PO2 (T) 131.3 mmHg (83.0-108.0); FCOHb 1.1 % (0.5-1.5); FHHb 0.7 % (0.0-5.0); FMetHb 0.3 % (0.0-1.5); FO2Hb 97.9 % (94.0-98.0); MODE VENT - AC; PATIENT TEMPERATURE 36.3; PEEP 18 cm H2O; RESPIRATORY RATE 30 b/min; TIDAL VOLUME 300 mL; TOTAL HEMOGLOBIN 8.4 G/dl (13.5-17.5)
[2024-08-23] MEDS: ferrous sulfate 300mg/5ml UD oral liquid OGT SCH (17:30)
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
--- NOTE | 2024-08-23 19:28 | PROCEDURE NOTE- Residance ---
Procedure Note Providers to CC ~ Planned Procedure Endotracheal intubation Indications Acute hypoxemic respiratory failure 2/2 hospital-acquired pneumonia Worsening respiratory distress Type of Anesthesia Etomidate and rocuronium Informed Consent Explained the patient's risks and benefits of the procedure and the immediate in need of it due to his current clinical condition. The patient expressed understanding and agreed for the procedure. Description A time-out was completed verifying correct patient, procedure, site, positioning, and special equipment if applicable. The patient was placed in a flat position. Sedation was obtained using etomidate 40 mg and rocuronium 50 mg. The patient was easily ventilated using an ambu bag. The glide scope was used and inserted into the oropharynx at which time there was a Grade 1 view of the vocal cords. A eight english endotracheal tube was inserted and visualized going through the vocal cords. The stylette was removed. Colorimetric change was visualized on the CO2 meter. Breath sounds were heard in both lung orosco equally. The endotracheal tube was placed at 23 cm, measured at the teeth. Attending Dr. Zacarias was present for the entire procedure. A chest x-ray was ordered to assess for pneumothorax and verify endotrachealtube placement. Estimated Blood Loss No blood loss Complication None X-Ray Findings ET tube in satisfactory position. Date of Service: August 23, 2024 Billing Provider: JONATHAN ZACARIAS MD, SURYA PRATIK, [facility] August 23, 2024 19:28
--- NOTE | 2024-08-23 20:02 | CARDIOLOGY REPORT ---
APPROVED REPORT EXAM: Comprehensive 2D, Doppler, and color-flow Echocardiogram. Patient Location: ER RM 4 Blood Pressure: 110/66 mmHg Heart Rate: 90 bpm Rhythm: Sinus Indications Low O2 BiPAP ProBNP: 9277 NO LOT PORTER NO Previous ECHO 2D Dimensions LA Diam4.0 cm IVSd 1.0 (0.7-1.1cm) LVDd 4.3 cm PWd 0.9 (0.7-1.1cm) IVSs 1.6 (0.8-1.2cm) LVDs 2.2 (2.5-4.0cm) PWs 1.3 (0.8-1.2cm) LVOT Diameter 1.98 (1.8-2.4cm) LVEF(%) 79.9 (>50%) Ao Asc Diam.2.96 cm IVC 17.39 mmFS (%) 48.3 % SV 66.1 ml CO 6.0 L/min M-Mode Dimensions Left Atrium(MM) 4.29 (2.5-4.0cm) Aortic Root 2.68 (2.2-3.7cm) Aortic Cusp Exc 1.54 (1.5-2.0cm) MV EPSS 0.6 (<0.5cm) Aortic Valve AoV Peak [place]. 196.0 cm/s AoV VTI 31.2 cm AO Peak GR. 15.4 mmHg AO Mean GR. 9 mmHg LVOT VTI 25.19 cm LVOT Peak [place]. 130.3 cm/s JOSE(VTI)/BSA 2.48 cm2/m2 JOSE (VTI) 2.48 cm2 Mitral Valve MV E Velocity 128.9 cm/s MV Peak Gr. 8 mmHg MV DECEL TIME 228 ms MV A Velocity 85.0 cm/s MV PHT 80 ms E/A Ratio 1.5 MVA (PHT) 2.75 cm2 MV FKbm392.2 cm/s TDI Lateral E' P. V12.50 cm/s E/Lateral E' 10.3 Pulmonary Valve PAEDP14.95 mmHg Tricuspid Valve TR P. Velocity 310 cm/s RAP ESTIMATE 10 mmHg TR Peak Gr. 38 mmHg RVSP 48 mmHg LEFT VENTRICLE Normal LV size and wall thickness. Overall systolic function is hyperdynamic. Overall LVEF is 75-80%. RIGHT VENTRICLE RV is normal size and function. Estimated PA systolic pressure of 48 mm of mercury. ATRIA The left atrium size is normal. AORTIC VALVE Trileaflet AV appears mildly sclerotic without stenosis. No insufficiency. MITRAL VALVE Mitral valve leaflets are mildly thickened with mild annular calcification. No stenosis. Trace regurg itation. TRICUSPID VALVE The tricuspid valve is normal in structure with mild regurgitation. PULMONIC VALVE The pulmonary valve is normal in structure with physiologic insufficiency. GREAT VESSELS The aortic root is normal in size. The ascending aorta is normal in size. The IVC is normal in size a nd collapses >50% with inspiration. PERICARDIUM Normal pericardium. No effusion. Other Information Study Quality: Adequate Conclusion Overall LVEF is 75-80%. Normal LV size and wall thickness. Overall systolic function is hyperdynamic. RV is normal size and function. Estimated PA systolic pressure of 48 mm of mercury. Trileaflet AV appears mildly sclerotic without stenosis. No insufficiency. Mitral valve leaflets are mildly thickened with mild annular calcification. No stenosis. Trace regu rgitation. The tricuspid valve is normal in structure with mild regurgitation. The pulmonary valve is normal in structure with physiologic insufficiency. Normal pericardium. No effusion.
[2024-08-23] MEDS: docusate sodium 100mg/10ml UD cup OGT SCH (20:18)
[2024-08-23 22:24] LABS: ABG BASE EXCESS -7.9 mmol/L (-2.0-3.0); ABG HCO3 19.5 mmol/L (21.0-28.0); ABG OXYGEN SATURATION 98.8 % (94.0-98.0); ABG PCO2 (T) 48.5 mmHg (35.0-48.0); ABG PH (T) 7.219 (7.350-7.450); ABG PO2 (T) 128.1 mmHg (83.0-108.0); FCOHb 1.1 % (0.5-1.5); FHHb 1.2 % (0.0-5.0); FMetHb 0.3 % (0.0-1.5); FO2Hb 97.4 % (94.0-98.0); MODE ac/prvc; PATIENT TEMPERATURE 36.2; PEEP 18 cm H2O; RESPIRATORY RATE 30 b/min; TIDAL VOLUME 300 mL; TOTAL HEMOGLOBIN 8.1 G/dl (13.5-17.5)
[2024-08-24] VITALS (50 sets, daily range): BP systolic 82–156; BP diastolic 38–65; PULSE 59–109; RESP 26–34; TEMP 98.3–98.6; O2SAT 91–100
[2024-08-24 02:10] LABS: BASOPHILS % (AUTO) 0.3 % (0-1); EOSINOPHILS % (AUTO) 0.2 % (0-6); HEMOGLOBIN 7.1 g/dl (14.0-17.9); LYMPHOCYTES # (AUTO) 0.6 X10'3 (1.1-4.8); LYMPHOCYTES % (AUTO) 4.2 % (21-51); MEAN CORPUSCULAR VOLUME 84.8 FL (78-98); MONOCYTES # (AUTO) 0.8 X10'3 (0-0.9); MONOCYTES % (AUTO) 5.5 % (2-12); NEUTROPHILS # (AUTO) 12.6 X10'3 (1.8-7.7); NEUTROPHILS % (AUTO) 89.8 % (42-75); PLATELET COUNT 373 X10'3 (140-440); RED BLOOD COUNT 2.53 X10'6 (4.70-6.10); RED CELL DISTRIBUTION WIDTH 16.3 % (11.5-14.5); WHITE BLOOD COUNT 14.1 X10'3 (4.5-11.0)
[2024-08-24 02:17] LABS: HEMATOCRIT 21.4 % (42.0-52.0)
[2024-08-24 02:22] LABS: ALANINE AMINOTRANSFERASE 19 U/L (12-78); ALBUMIN 1.3 G/DL (3.4-5.0); ALBUMIN/GLOBULIN RATIO 0.3 (1.1-1.5); ALKALINE PHOSPHATASE 179 IU/L (46-116); ANION GAP 14 (8-16); BILIRUBIN,TOTAL 0.3 MG/DL (0.1-1.0); BLOOD UREA NITROGEN 55 MG/DL (7-18); BUN/CREATININE RATIO 35.7 (10.0-20.0); CALCIUM 7.3 MG/DL (8.5-10.1); CHLORIDE 97 MMOL/L (99-107); CREATININE 1.54 MG/DL (0.60-1.10); GLUCOSE 226 MG/DL (70-104); MAGNESIUM 1.6 MG/DL (1.5-2.4); SODIUM 132 MMOL/L (135-145); TOTAL CARBON DIOXIDE 21.5 MMOL/L (24-32); TOTAL PROTEIN 5.1 G/DL (6.4-8.2); TRIGLYCERIDES 106 MG/DL (20-135); eCRCL 43 ML/MIN; eGFR 45 ML/MIN
[2024-08-24 02:24] LABS: ASPARTATE AMINO TRANSFERASE 16 U/L (10-37); PHOSPHORUS 6.1 MG/DL (2.3-4.5); POTASSIUM 4.5 MMOL/L (3.5-5.1)
[2024-08-24] MEDS ORDERED: PERFLUTREN PROTEIN-A MICROSPHR (Optison) 0.22 MG/ML 3ML VIAL IV PRN (02:35)
[2024-08-24] MEDS: albumin (human) 25% 100 ML IV solution IV ONE (03:09)
[2024-08-24] MEDS: albumin (human) 25% 100ml IV 100 ML IV ONE (03:43)
[2024-08-24] MEDS: NORepinephrine 8mg/ 250ml NS 250 ML IV PRN ×2 (03:45→19:27)
[2024-08-24] MEDS: vasopressin inj. 40 UNIT in normal saline 50ml IV soln 38 ML IV SCH (04:35)
[2024-08-24 05:19] LABS: ABG BASE EXCESS -6.5 mmol/L (-2.0-3.0); ABG HCO3 20.7 mmol/L (21.0-28.0); ABG OXYGEN SATURATION 90.6 % (94.0-98.0); ABG PCO2 (T) 50.3 mmHg (35.0-48.0); ABG PH (T) 7.232 (7.350-7.450); ABG PO2 (T) 59.8 mmHg (83.0-108.0); FHHb 9.3 % (0.0-5.0); FMetHb 0.3 % (0.0-1.5); FO2Hb 89.4 % (94.0-98.0); MODE prvc; PATIENT TEMPERATURE 36.9; PEEP 16 cm H2O; RESPIRATORY RATE 30 b/min; TIDAL VOLUME 300 mL; TOTAL HEMOGLOBIN 8.1 G/dl (13.5-17.5)
--- NOTE | 2024-08-24 07:12 | RADIOLOGY REPORT ---
EXAM: XR Chest, 1 View CLINICAL INDICATION: INTUBATED/PNA TECHNIQUE: Frontal view of the chest. COMPARISON: DI CHEST,SINGLE VIEW on DOS: 08/23/24, DI CHEST,SINGLE VIEW on DOS: 08/23/24, DI CHEST,SING LE VIEW on DOS: 08/22/24 FINDINGS: LUNGS AND PLEURAL SPACES: Pulmonary congestion and edema. Pneumonia cannot be excluded. No pneumot horax. HEART: Unremarkable. No cardiomegaly. MEDIASTINUM: Unremarkable. Normal mediastinal contour. BONES/JOINTS: Unremarkable. No acute fracture. TUBES, LINES AND DEVICES: Right internal jugular central venous catheter tip in the superior vena c prema. The endotracheal tube (ETT) is in satisfactory position. Enteric tube tip in the stomach. OTHER FINDINGS: . . . IMPRESSION: Pulmonary congestion and edema. Pneumonia cannot be excluded.
[2024-08-24] MEDS: vancomycin/NS 1 GM ADD-VANTAGE 250 ML IV SCH (08:32)
[2024-08-24] MEDS: lansoprazole 15mg solutab OGT SCH (08:33)
--- NOTE | 2024-08-24 11:07 | PROGRESS NOTE ---
Progress Note Dictate Providers to CC ~ Subjective Subjective: Oxygenation remains problematic. He is on norepinephrine at approximately 15 micrograms/minute. He is on a bicarbonate infusion. He is sedated with propofol and fentanyl. He is receiving enteral feedings. Objective Objective: Afebrile on 60% FiO2 with PEEP 16 GENERAL: Elderly male sedated and intubated NECK: Right internal jugular central venous catheter in place. LUNGS: Mildly coarse breath sounds bilaterally. HEART: Mildly tachycardic and regular. ABDOMEN: Soft without significant distention. EXTREMITIES: With some edema. BACK: He has a large open wound with granulation tissue Lab Results: 08/24/2413108/24/24131 Problem\Assessment\Plan Additional Plan 1. Acute respiratory failure with bilateral pulmonary opacities, concerning for hospital-acquired pneumonia He had been receiving high-dose daptomycin, which can rarely cause eosinophilic pneumonia 2. Severe sepsis with leukocytosis and elevated procalcitonin - both have shown some improvement 3. Acute kidney injury with creatinine stable at 1.5 4. MRSA sepsis, requiring hospitalization at [place] in mid July He did take quite a bit of time to clear his blood, but I believe that was accomplished around 08/09 Plans were made to complete an 8-week course on 10/03. Transesophageal echo was negative. 5. Thoracic spine infection with large epidural abscess from T5-T12 s/p drainage/decompression with posterior instrumentation and fusion T10-L2 6. Large open wound at back 7. Diabetes mellitus type 2 8. Developmental delay with chronic hyponatremia Continue vancomycin and cefepime Follow-up new cultures Follow procalcitonin Consider corticosteroids if concern for daptomycin toxicity (eosinophilic pneumonia) He is going to be transitioned to long-term oral therapy when IV antibiotics completed for MRSA SHIVAM MACE MD August 24, 2024 11:07
[2024-08-24] MEDS: midazolam 100mg in NS 100ml 100 ML IV PRN (11:42)
[2024-08-24] MEDS: furosemide 40mg/4ml inj ONE (11:42)
[2024-08-24] MEDS: COMMUNICATION ORDER 1 EA MISC MC ONE (12:00)
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
[2024-08-24 13:06] LABS: ABG BASE EXCESS -5.2 mmol/L (-2.0-3.0); ABG OXYGEN SATURATION 96.7 % (94.0-98.0); ABG PCO2 (T) 60.2 mmHg (35.0-48.0); ABG PH (T) 7.202 (7.350-7.450); FCOHb 1.1 % (0.5-1.5); FHHb 3.3 % (0.0-5.0); FMetHb 0.3 % (0.0-1.5); FO2Hb 95.3 % (94.0-98.0); MODE PRVC; PATIENT TEMPERATURE 37.4; PEEP 16 cm H2O; RESPIRATORY RATE 30 b/min; TIDAL VOLUME 300 mL; TOTAL HEMOGLOBIN 9.8 G/dl (13.5-17.5)
[2024-08-24] MEDS ORDERED: insulin regular, human U-100 10ml vial - multi-dose SQ SCH (14:00)
[2024-08-24] MEDS: furosemide 40mg/4ml inj IV SCH (14:25)
--- NOTE | 2024-08-24 16:07 | PROGRESS NOTE ---
Daily Progress Note Providers to CC ~ sedated, on ventilator resting comfortably in the bed Central Line/PICC still needed: Yes Mir-Non Protocol Mir Indications Met/Not Met: F/C Indications Met Antibiotic Timeout Antibiotic Ordered?: Yes MRSA Education MRSA Education Provided to pt: Yes Subjective As above Objective Vital Signs Date Time Temp Pulse Resp B/P (MAP) Pulse Ox O2 Delivery O2 Flow Rate FiO2 08/24/24 15:49 106 30 98 50 08/24/24 15:00 99.1 107/49 (68) Mechanical Ventilator 08/23/24 07:32 0 Vital signs, stable ,afebrile. Pulse Oximetry reflects adequate oxygenation, sedated, on ventilator FiO2 50% Sedated, resting comfortably in the bed, in ARDS Skin: Warm, dry, no pallor, no rash or petechiae., large decubitus on the back HEENT: Atraumatic, normocephalic, EOMI, anicteric sclera B; pink conjunctiva; PERRLA, normal oropharynx, moist oral and nasal mucosa. Tympanic membrane , nose , throat clear. Neck: Trachea midline. Supple, full range of motion, no JVD, bruit , hepatojugular reflex , lymphadenopathy or masses, or other lesions Cardiac: Regular rhythm, regular rate no murmurs, rubs, or gallops. Normal S1 and S2, no S3 noticed. PMI is normal. Respiratory: Equal breath sounds bilaterally, no tachypnea; lungs clear to auscultation bilaterally, no wheezing ,rub or rales, or crackles. Chest wall is symmetric and without deformity. No signs of trauma. Chest wall is nontender. No signs of respiratory distress. Resonance is normal upon percussion bilaterally. Gastrointestinal: Abdomen symmetric, non-distended, soft, non-tender, normal bowel sounds x4 quadrant, normoactive, no hepatosplenomegaly , no masses , no bruit, no flank pain bilaterally. No voluntary guarding, rebound, or rigidity. No tenderness to percussion. No pulsatile masses. Equal femoral pulses. No Bautista's sign or McBurney point tenderness. Back; no CVA tenderness bilaterally, no deformities. Neck and back are without deformity as well. No tenderness noted on palpation of the spinous processes. Spinous processes are midline. Cervical, thoracic, and lumbar paraspinal muscles are not tender and are without spasm. : normal external genitalia, without lesions, swelling, masses or tenderness. Musculoskeletal: Extremities, normal range of motion, non-tender, muscle strength 5/5 x 4. Negative Homans signs bilaterally on lower extremity. Distal pulses full symmetrical, no clubbing, cyanosis , edema. Neurological: Sedated on ventilator Psych: Sedated on ventilator Vascular: Good distal pulses, which are equal x4; capillary refill less than 2 seconds. Lymphatic, no lymphadenopathy. Result Diagram: 08/24/2413108/24/24 013 Coagulation Studies Laboratory Tests Test 08/22/24 18:16 Prothrombin Time 10.5 SECONDS (9.0-12.0) INR International Normalized Ratio 1.0 INR Activated Partial Thromboplast Time 36 SECONDS (22-32) H Coagulation Comments Problem\Assessment\Plan Assessment Bilateral pneumonia, community-acquired mixed kenneth Gram-positive Gram-negative Sepsis Septic shock on vasopressors Diabetes mellitus type 2 poor control Acute respiratory failure secondary to hypoxia Hyponatremia UTI complicated A right side posterior chest abscess CHF systolic, in exacerbation Hypovolemia associated with hypotension Chronic pain syndrome Additional comorbidities, history of chronic kidney disease anemia hemoglobin 8.1, back decubitus, hypo glycemia, Plan IV fluids antibiotics keep patient well hydrated euvolemic, sedated on ventilator Hyperglycemia sliding scale Patient is on ventilator, sedated SVN DuoNeb, incentive spirometry Correct electrolytes Wound care Echocardiography completed PT evaluation and treatment Dr. Minor infectious disease is on the case Reconciled home medications DVT gastropathy prophylaxis addressed Sepsis Screening Reassessment Date: August 24, 2024 Date of Service: August 24, 2024 Billing Provider: VIRGILIO STEVENS MD Common Visit Codes: [id number] INP/OBS CARE(HIGH) VIRGILIO STEVENS MD August 24, 2024 16:07
[2024-08-25] VITALS (47 sets, daily range): BP systolic 95–145; BP diastolic 41–60; PULSE 75–117; RESP 30–31; O2SAT 93–100
[2024-08-25 02:49] LABS: BASOPHILS % (AUTO) 0.5 % (0-1); EOSINOPHILS # (AUTO) 0.1 X10'3 (0-0.9); EOSINOPHILS % (AUTO) 2.2 % (0-6); HEMOGLOBIN 8.9 g/dl (14.0-17.9); LYMPHOCYTES # (AUTO) 0.6 X10'3 (1.1-4.8); MEAN CORPUSCULAR HEMOGLOBIN 28.2 PG (27.0-31.0); MEAN CORPUSCULAR HGB CONC 32.9 g/dL (33.0-36.5); MEAN CORPUSCULAR VOLUME 85.7 FL (78-98); MEAN PLATELET VOLUME 6.5 FL (7.4-10.4); MONOCYTES # (AUTO) 0.9 X10'3 (0-0.9); MONOCYTES % (AUTO) 20.9 % (2-12); NEUTROPHILS # (AUTO) 2.8 X10'3 (1.8-7.7); NEUTROPHILS % (AUTO) 62.4 % (42-75); PLATELET COUNT 272 X10'3 (140-440); RED BLOOD COUNT 3.15 X10'6 (4.70-6.10); RED CELL DISTRIBUTION WIDTH 16.7 % (11.5-14.5); WHITE BLOOD COUNT 4.5 X10'3 (4.5-11.0)
[2024-08-25] MEDS ORDERED: glucagon, human recombinant 1mg kit SUBCUT PRN (02:55)
[2024-08-25] MEDS ORDERED: DEXTROSE 15 GM of carb/4 tabs (each vial/BOTTLE has 4 tablets) PO PRN ×2 (02:55)
[2024-08-25] MEDS ORDERED: dextrose 50%-water 50ml dispensing syringe IV PRN ×2 (02:55)
[2024-08-25 03:04] LABS: ALANINE AMINOTRANSFERASE 14 U/L (12-78); ALBUMIN 1.4 G/DL (3.4-5.0); ALBUMIN/GLOBULIN RATIO 0.4 (1.1-1.5); ALKALINE PHOSPHATASE 165 IU/L (46-116); ANION GAP 12 (8-16); ASPARTATE AMINO TRANSFERASE 4 U/L (10-37); BILIRUBIN,TOTAL 0.4 MG/DL (0.1-1.0); BLOOD UREA NITROGEN 61 MG/DL (7-18); BUN/CREATININE RATIO 34.1 (10.0-20.0); CALCIUM 7.6 MG/DL (8.5-10.1); CHLORIDE 99 MMOL/L (99-107); CREATININE 1.79 MG/DL (0.60-1.10); GLUCOSE 235 MG/DL (70-104); MAGNESIUM 1.8 MG/DL (1.5-2.4); POTASSIUM 4.2 MMOL/L (3.5-5.1); SODIUM 134 MMOL/L (135-145); TOTAL CARBON DIOXIDE 23.5 MMOL/L (24-32); TOTAL PROTEIN 5.2 G/DL (6.4-8.2); eCRCL 40 ML/MIN; eGFR 38 ML/MIN
[2024-08-25 03:14] LABS: PLATELET ESTIMATE NORMAL; TOTAL CELLS COUNTED 100
[2024-08-25 03:15] LABS: ANISOCYTOSIS 1+
[2024-08-25 03:50] LABS: ABG BASE EXCESS -5.2 mmol/L (-2.0-3.0); ABG HCO3 22.8 mmol/L (21.0-28.0); ABG PCO2 (T) 58.3 mmHg (35.0-48.0); ABG PH (T) 7.211 (7.350-7.450); ABG PO2 (T) 136.4 mmHg (83.0-108.0); FMetHb 0.3 % (0.0-1.5); FO2Hb 97.7 % (94.0-98.0); MODE ac/prvc; PEEP 16 cm H2O; RESPIRATORY RATE 30 b/min; TIDAL VOLUME 300 mL; TOTAL HEMOGLOBIN 9.8 G/dl (13.5-17.5)
[2024-08-25] MEDS: VANCOMYCIN LEVEL IV ONE (06:30)
[2024-08-25] MEDS: insulin regular, human U-100 10ml vial - multi-dose SQ SCH (08:00)
[2024-08-25] MEDS: metolazone 2.5mg tablet PO SCH (09:38)
[2024-08-25] MEDS ORDERED: DEXTROSE 15 GM of carb/4 tabs (each vial/BOTTLE has 4 tablets) OGT PRN ×2 (10:27)
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
[2024-08-25 14:04] LABS: ABG BASE EXCESS -4.2 mmol/L (-2.0-3.0); ABG HCO3 23.5 mmol/L (21.0-28.0); ABG OXYGEN SATURATION 93.4 % (94.0-98.0); ABG PCO2 (T) 53.2 mmHg (35.0-48.0); ABG PH (T) 7.255 (7.350-7.450); ABG PO2 (T) 62.9 mmHg (83.0-108.0); ALLEN'S TEST POSITIVE; FCOHb 1.1 % (0.5-1.5); FHHb 6.5 % (0.0-5.0); FMetHb 0.3 % (0.0-1.5); FO2Hb 92.1 % (94.0-98.0); MODE PRVC; PATIENT TEMPERATURE 35.5; PEEP 16 cm H2O; RESPIRATORY RATE 30 b/min; TIDAL VOLUME 300 mL; TOTAL HEMOGLOBIN 9.8 G/dl (13.5-17.5)
--- NOTE | 2024-08-25 17:29 | PROGRESS NOTE ---
Daily Progress Note Providers to CC ~ patient intubated, sedated resting comfortably in the bed Central Line/PICC still needed: Yes Mir-Non Protocol Mir Indications Met/Not Met: F/C Indications Met Antibiotic Timeout Antibiotic Ordered?: Yes MRSA Education MRSA Education Provided to pt: Yes Subjective As above Objective Vital Signs Date Time Temp Pulse Resp B/P (MAP) Pulse Ox O2 Delivery O2 Flow Rate FiO2 08/25/24 17:08 88 30 94 40 08/25/24 16:00 97.2 103/45 (64) Mechanical Ventilator 08/23/24 07:32 0 Vital signs, stable ,afebrile. Pulse Oximetry reflects adequate oxygenation. Intubated, sedated, FiO2 40% on ventilator General: well developed, well nourished. Sedated on ventilator Skin: Warm, dry, large advanced decubitus on the back noticed HEENT: Atraumatic, normocephalic, EOMI, anicteric sclera B; pink conjunctiva; PERRLA, normal oropharynx, moist oral and nasal mucosa. Tympanic membrane , nose , throat clear. Neck: Trachea midline. Supple, full range of motion, no JVD, bruit , hepatojugular reflex , lymphadenopathy or masses, or other lesions Cardiac: Regular rhythm, regular rate no murmurs, rubs, or gallops. Normal S1 and S2, no S3 noticed. PMI is normal. Respiratory: Equal breath sounds bilaterally, no tachypnea; lungs clear to auscultation bilaterally, no wheezing ,rub or rales, or crackles. Chest wall is symmetric and without deformity. No signs of trauma. Chest wall is nontender. No signs of respiratory distress. Resonance is normal upon percussion bilaterally. Gastrointestinal: Abdomen symmetric, non-distended, soft, non-tender, normal bowel sounds x4 quadrant, normoactive, no hepatosplenomegaly , no masses , no bruit, no flank pain bilaterally. No voluntary guarding, rebound, or rigidity. No tenderness to percussion. No pulsatile masses. Equal femoral pulses. No Bautista's sign or McBurney point tenderness. Back; no CVA tenderness bilaterally, no deformities. Neck and back are without deformity as well. No tenderness noted on palpation of the spinous processes. Spinous processes are midline. Cervical, thoracic, and lumbar paraspinal muscles are not tender and are without spasm. : normal external genitalia, without lesions, swelling, masses or tenderness. Musculoskeletal: Extremities, normal range of motion, non-tender, muscle strength 5/5 x 4. Negative Homans signs bilaterally on lower extremity. Distal pulses full symmetrical, no clubbing, cyanosis , edema. Neurological: Sedated on ventilator Psych: Sedated on mechanical ventilator Vascular: Good distal pulses, which are equal x4; capillary refill less than 2 seconds. Lymphatic, no lymphadenopathy. Result Diagram: 08/25/2421408/25/24214 Coagulation Studies Laboratory Tests Test 08/22/24 18:16 Prothrombin Time 10.5 SECONDS (9.0-12.0) INR International Normalized Ratio 1.0 INR Activated Partial Thromboplast Time 36 SECONDS (22-32) H Coagulation Comments Problem\Assessment\Plan Assessment Bilateral pneumonia, community-acquired mixed kenneth Gram-positive Gram-negative Sepsis, ARDS Septic shock on vasopressors Diabetes mellitus type 2 poor control Acute respiratory failure secondary to hypoxia Hyponatremia UTI complicated A right side posterior chest abscess CHF systolic, in exacerbation Hypovolemia associated with hypotension Chronic pain syndrome Additional comorbidities, history of chronic kidney disease anemia hemoglobin 8.1, back decubitus, hypo glycemia, Plan IV fluids antibiotics keep patient well hydrated euvolemic, sedated on ventilator Hyperglycemia sliding scale Patient is on ventilator, sedated SVN DuoNeb, incentive spirometry Correct electrolytes Wound care Echocardiography completed PT evaluation and treatment Dr. Minor infectious disease is on the case Reconciled home medications DVT gastropathy prophylaxis addressed Sepsis Screening Reassessment Date: August 25, 2024 Date of Service: August 25, 2024 Billing Provider: VIRGILIO STEVENS MD Common Visit Codes: [id number] INP/OBS CARE(HIGH) VIRGILIO STEVENS MD August 25, 2024 17:29
--- NOTE | 2024-08-25 18:12 | RADIOLOGY REPORT ---
CHEST RADIOGRAPH Indication: intubated Technique: Single frontal view of the chest was obtained COMPARISON: DI CHEST,SINGLE VIEW on DOS: 08/24/24, DI CHEST,SINGLE VIEW on DOS: 08/23/24, DI CHEST,SINGL E VIEW on DOS: 08/23/24, DI CHEST,SINGLE VIEW on DOS: 08/22/24 FINDINGS: Lines and Tubes: Endotracheal tube projects over the midthoracic trachea. Enteric tube is subdiaphrag matic. A right internal jugular approach central venous catheter terminates at the level of the lower SVC. Lungs: Multifocal bilateral patchy airspace disease. Pleura: Blunting of the costophrenic sulci. No measurable pnemothorax. Cardiomediastinal contours: Unremarkable Bones: Osseus degenerative changes. Left clavicular fracture deformity. IMPRESSION: Persistent bilateral multifocal patchy airspace disease which may be related to edema and / or pneumo faye. Small bilateral pleural effusions.
[2024-08-25] MEDS: metolazone 2.5mg tablet OGT SCH (20:25)
[2024-08-26] VITALS (49 sets, daily range): BP systolic 84–184; BP diastolic 40–84; PULSE 79–109; RESP 25–32; O2SAT 93–100
[2024-08-26 02:24] LABS: BASOPHILS % (AUTO) 0.3 % (0-1); EOSINOPHILS # (AUTO) 0.3 X10'3 (0-0.9); EOSINOPHILS % (AUTO) 7.2 % (0-6); HEMOGLOBIN 8.2 g/dl (14.0-17.9); LYMPHOCYTES # (AUTO) 0.7 X10'3 (1.1-4.8); LYMPHOCYTES % (AUTO) 19.5 % (21-51); MEAN CORPUSCULAR HEMOGLOBIN 27.6 PG (27.0-31.0); MEAN CORPUSCULAR HGB CONC 32.6 g/dL (33.0-36.5); MEAN CORPUSCULAR VOLUME 84.7 FL (78-98); MEAN PLATELET VOLUME 6.9 FL (7.4-10.4); MONOCYTES # (AUTO) 0.6 X10'3 (0-0.9); MONOCYTES % (AUTO) 16.2 % (2-12); NEUTROPHILS % (AUTO) 56.8 % (42-75); PLATELET COUNT 177 X10'3 (140-440); RED BLOOD COUNT 2.96 X10'6 (4.70-6.10); RED CELL DISTRIBUTION WIDTH 16.9 % (11.5-14.5); WHITE BLOOD COUNT 3.5 X10'3 (4.5-11.0)
[2024-08-26 02:46] LABS: ALANINE AMINOTRANSFERASE 13 U/L (12-78); ALBUMIN 1.1 G/DL (3.4-5.0); ALBUMIN/GLOBULIN RATIO 0.3 (1.1-1.5); ALKALINE PHOSPHATASE 150 IU/L (46-116); ANION GAP 7 (8-16); ASPARTATE AMINO TRANSFERASE 9 U/L (10-37); BILIRUBIN,TOTAL 0.3 MG/DL (0.1-1.0); BLOOD UREA NITROGEN 62 MG/DL (7-18); BUN/CREATININE RATIO 31.6 (10.0-20.0); CALCIUM 7.7 MG/DL (8.5-10.1); CHLORIDE 100 MMOL/L (99-107); CREATININE 1.96 MG/DL (0.60-1.10); GLUCOSE 299 MG/DL (70-104); MAGNESIUM 1.7 MG/DL (1.5-2.4); POTASSIUM 3.6 MMOL/L (3.5-5.1); PREALBUMIN 4.3 MG/DL (19-36); SODIUM 133 MMOL/L (135-145); TOTAL CARBON DIOXIDE 25.9 MMOL/L (24-32); TOTAL PROTEIN 4.8 G/DL (6.4-8.2); eCRCL 37 ML/MIN; eGFR 34 ML/MIN
[2024-08-26 02:58] LABS: HEMOGLOBIN A1C 6.8 % (4.5-6.2)
[2024-08-26 03:06] LABS: ABG BASE EXCESS -2.8 mmol/L (-2.0-3.0); ABG HCO3 24.6 mmol/L (21.0-28.0); ABG OXYGEN SATURATION 96.9 % (94.0-98.0); ABG PCO2 (T) 54.7 mmHg (35.0-48.0); ABG PH (T) 7.267 (7.350-7.450); ABG PO2 (T) 85.6 mmHg (83.0-108.0); FCOHb 1.4 % (0.5-1.5); FMetHb 0.3 % (0.0-1.5); FO2Hb 95.3 % (94.0-98.0); MODE ac/prvc; PEEP 14 cm H2O; RESPIRATORY RATE 30 b/min; TIDAL VOLUME 300 mL; TOTAL HEMOGLOBIN 8.9 G/dl (13.5-17.5)
[2024-08-26 03:08] LABS: ANISOCYTOSIS 1+; PLATELET ESTIMATE NORMAL; TOTAL CELLS COUNTED 100
--- NOTE | 2024-08-26 06:00 | RADIOLOGY REPORT ---
EXAM: XR Chest, 1 View CLINICAL INDICATION: ett placement TECHNIQUE: Frontal view of the chest. COMPARISON: DI CHEST,SINGLE VIEW on DOS: 08/25/24, DI CHEST,SINGLE VIEW on DOS: 08/24/24, DI CHEST,SI NGLE VIEW on DOS: 08/23/24, DI CHEST,SINGLE VIEW on DOS: 08/23/24, DI CHEST,SINGLE VIEW on DOS: 08/22/24 FINDINGS: LUNGS AND PLEURAL SPACES: Pulmonary congestion and edema. Pneumonia cannot be excluded. No pneumot horax. HEART: Unremarkable. No cardiomegaly. MEDIASTINUM: Unremarkable. Normal mediastinal contour. BONES/JOINTS: Unremarkable. No acute fracture. TUBES, LINES AND DEVICES: Right internal jugular central venous catheter tip in the superior vena c prema. The endotracheal tube (ETT) is in satisfactory position. Enteric tube tip cannot be seen but i s below the diaphragm. OTHER FINDINGS: . . IMPRESSION: Pulmonary congestion and edema. Pneumonia cannot be excluded.
[2024-08-26 06:39] LABS: ABG BASE EXCESS -11.2 mmol/L (-2.0-3.0); ABG HCO3 18.2 mmol/L (21.0-28.0); ABG OXYGEN SATURATION 99.6 % (94.0-98.0); ABG PCO2 (T) 59.3 mmHg (35.0-48.0); ABG PH (T) 7.102 (7.350-7.450); ABG PO2 (T) 231.5 mmHg (83.0-108.0); FCOHb 0.6 % (0.5-1.5); FHHb 0.4 % (0.0-5.0); FMetHb 0.2 % (0.0-1.5); FO2Hb 98.8 % (94.0-98.0); MODE VENT - prvc; PATIENT TEMPERATURE 36.3; PEEP 18 cm H2O; RESPIRATORY RATE 25 b/min; TIDAL VOLUME 300 mL; TOTAL HEMOGLOBIN 8.9 G/dl (13.5-17.5)
[2024-08-26] MEDS: VANCOMYCIN LEVEL IV ONE (08:30)
--- NOTE | 2024-08-26 08:38 | ELECTROCARDIOGRAPH REPORT ---
[facility] Test Date: 2024-08-26 Test Time: 08:36:17 Pat Name: JEFFRY KATZ Department: [facility] Patient ID: [facility]-[id number] Room: [place] [address] A Gender: M Tugger Operator: : [id number] Requested By: JERMAIN BLAKE Order Number: [id number] Reading MD: Dr. Romana Pantoja Measurements Intervals [place] Rate: 93 P: 60 MO: 134 QRS: -23 QRSD: 87 T: 39 QT: 304 QTc: 379 Interpretive Statements Sinus rhythm Borderline left axis deviation Borderline low voltage, extremity leads Abnormal R-wave progression, late transition Electronically Signed On 08-26-2024 18:52:[address] Romana Pantoja Please click the below link to view image of tracing.
[2024-08-26] MEDS: vancomycin/NS 1 GM ADD-VANTAGE 250 ML IV SCH (09:49)
[2024-08-26] MEDS: methylPREDNISolone sod succ/PF 40mg inj. IV SCH (09:53)
[2024-08-26] MEDS: insulin regular, human U-100 10ml vial - multi-dose SQ SCH (10:00)
[2024-08-26] MEDS: insulin glargine (Lantus) pen - multi-dose SQ ONE (11:03)
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
--- NOTE | 2024-08-26 11:12 | PROGRESS NOTE ---
Progress Note Dictate Providers to CC ~ Subjective Subjective: Oxygenation seems to be a bit better. He remains on norepinephrine around 10 micrograms/minute. He is receiving enteral feedings. Nursing states that he has been sedated with fentanyl. There have been discussions about his code status. No fever. He was started on steroids today. Objective Objective: Afebrile on 40% FiO2 with PEEP 10 GENERAL: Elderly male sedated and intubated NECK: Right internal jugular central venous catheter in place. LUNGS: Mildly coarse breath sounds bilaterally. HEART: Regular rate and rhythm ABDOMEN: Soft without significant distention. EXTREMITIES: With some edema. BACK: He has a large open wound with granulation tissue Lab Results: 08/26/24 0200 08/26/24 0200 Problem\Assessment\Plan Additional Plan 1. Acute respiratory failure with bilateral pulmonary opacities, concerning for hospital-acquired pneumonia He had been receiving high-dose daptomycin, which can rarely cause eosinophilic pneumonia 2. Severe sepsis with leukocytosis and elevated procalcitonin - WBC improved but procalcitonin back up 3. Acute kidney injury with creatinine up to nearly 2 4. MRSA sepsis, requiring hospitalization at [facility] in mid July He did take quite a bit of time to clear his blood, but I believe that was accomplished around 08/09 Plans were made to complete an 8-week course on 10/03. Transesophageal echo was negative. 5. Thoracic spine infection with large epidural abscess from T5-T12 s/p drainage/decompression with posterior instrumentation and fusion T10-L2 6. Large open wound at back 7. Diabetes mellitus type 2 Continue vancomycin and cefepime Drop cefepime dose back down to 1g every 12 hours Follow procalcitonin Corticosteroids per riveter portable machine He is going to be transitioned to long-term oral therapy when IV antibiotics completed for MRSA SIHVAM MACE MD August 26, 2024 11:11
--- NOTE | 2024-08-26 17:54 | PROGRESS NOTE ---
Daily Progress Note Providers to CC ~ sedated, on ventilator, resting comfortably in the bed Central Line/PICC still needed: Yes Central Line/PICC Necessity: Prolonged IV access req Mir-Non Protocol Mir Indications Met/Not Met: F/C Indications Met Antibiotic Timeout Antibiotic Ordered?: Yes MRSA Education MRSA Education Provided to pt: Yes Subjective As above Objective Vital Signs Date Time Temp Pulse Resp B/P (MAP) Pulse Ox O2 Delivery O2 Flow Rate FiO2 08/26/24 17:00 99.0 90 30 124/53 (76) 97 Mechanical Ventilator 40 08/23/24 07:32 0 Vital signs, stable ,afebrile. Pulse Oximetry reflects adequate oxygenation, FiO2 40% on mechanical ventilator, sedated General: well developed, well nourished. Sedated on mechanical ventilator, Skin: Warm, dry, no pallor, no rash or petechiae. He has decubitus on the back noticed HEENT: Atraumatic, normocephalic, EOMI, anicteric sclera B; pink conjunctiva; PERRLA, normal oropharynx, moist oral and nasal mucosa. Tympanic membrane , nose , throat clear. Neck: Trachea midline. Supple, full range of motion, no JVD, bruit , hepatojugular reflex , lymphadenopathy or masses, or other lesions Cardiac: Regular rhythm, regular rate no murmurs, rubs, or gallops. Normal S1 and S2, no S3 noticed. PMI is normal. Respiratory: Equal breath sounds bilaterally, no tachypnea; lungs clear to auscultation bilaterally, no wheezing ,rub or rales, or crackles. Chest wall is symmetric and without deformity. No signs of trauma. Chest wall is nontender. No signs of respiratory distress. Resonance is normal upon percussion bilaterally. Gastrointestinal: Abdomen symmetric, non-distended, soft, non-tender, normal bowel sounds x4 quadrant, normoactive, no hepatosplenomegaly , no masses , no bruit, no flank pain bilaterally. No voluntary guarding, rebound, or rigidity. No tenderness to percussion. No pulsatile masses. Equal femoral pulses. No Bautista's sign or McBurney point tenderness. Back; no CVA tenderness bilaterally, no deformities. Neck and back are without deformity as well. No tenderness noted on palpation of the spinous processes. Spinous processes are midline. Cervical, thoracic, and lumbar paraspinal muscles are not tender and are without spasm. : normal external genitalia, without lesions, swelling, masses or tenderness. Musculoskeletal: Extremities, normal range of motion, non-tender, muscle strength 5/5 x 4. Negative Homans signs bilaterally on lower extremity. Distal pulses full symmetrical, no clubbing, cyanosis , edema. Neurological: S sedated on ventilator Psych: Sedated on ventilator Vascular: Good distal pulses, which are equal x4; capillary refill less than 2 seconds. Lymphatic, no lymphadenopathy. Result Diagram: 08/26/24 0200 08/26/24 020 Coagulation Studies Laboratory Tests Test 08/22/24 18:16 Prothrombin Time 10.5 SECONDS (9.0-12.0) INR International Normalized Ratio 1.0 INR Activated Partial Thromboplast Time 36 SECONDS (22-32) H Coagulation Comments Problem\Assessment\Plan Assessment Bilateral pneumonia, community-acquired mixed kenneth Gram-positive Gram-negative Sepsis, ARDS Septic shock Diabetes mellitus type 2 poor control Acute respiratory failure secondary to hypoxia Hyponatremia UTI complicated A right side posterior chest abscess CHF systolic, in exacerbation Hypovolemia associated with hypotension Chronic pain syndrome Additional comorbidities, history of chronic kidney disease anemia hemoglobin 8.1, back decubitus, hypo glycemia, Plan IV fluids antibiotics keep patient well hydrated euvolemic, sedated on ventilator Hyperglycemia sliding scale Patient is on ventilator, sedated SVN DuoNeb, incentive spirometry Correct electrolytes Wound care Echocardiography completed PT evaluation and treatment Dr. Minor infectious disease is on the case Reconciled home medications DVT gastropathy prophylaxis addressed Date of Service: August 26, 2024 Billing Provider: VIRGILIO STEVENS MD Common Visit Codes: [id number] INP/OBS CARE(HIGH) VIRGILIO STEVENS MD August 26, 2024 17:54
[2024-08-26] MEDS: cefepime 1GM in D5W 50mL 50 ML IV SCH (20:31)
[2024-08-26] MEDS: furosemide 40mg/4ml inj IV SCH (20:32)
[2024-08-27] VITALS (22 sets, daily range): BP systolic 101–217; BP diastolic 45–98; PULSE 92–138; RESP 24–33; O2SAT 91–97
--- NOTE | 2024-08-27 00:03 | PROGRESS NOTE ---
Progress Note Dictate Providers to CC Patient mechanically ventilated at this point, critically ill in the ICU.~ Progress Note: Evaluated with the help of RN. Used HIPAA compliant A/V technology to evaluate the patient Patient intubated and sedated following sepsis from a back wound complicating surgery. Levo requirements have gone down. Currently off steroids. Patient is on 30% FiO2. RN reports good urine output Antibiotic Ordered?: N/A Objective Vitals Vital Signs Date Time Temp Pulse Resp B/P (MAP) Pulse Ox O2 Delivery O2 Flow Rate FiO2 08/26/24 23:38 96 30 Mechanical Ventilator 40 08/26/24 23:36 96 08/26/24 23:30 104/49 (67) 08/26/24 23:00 98.8 08/23/24 07:32 0 Lab Results: 08/26/24 0200 08/26/24 0200 Objective Intubated and sedated now Hide evaluated in one of the the previous shifts. Physical exam limited being a video exam Coagulation Studies Laboratory Tests Test 08/22/24 18:16 Prothrombin Time 10.5 SECONDS (9.0-12.0) INR International Normalized Ratio 1.0 INR Activated Partial Thromboplast Time 36 SECONDS (22-32) H Coagulation Comments Problem\Assessment\Plan Additional Plan 1. Acute hypoxic respiratory failure 2. Ventilator dependent status 3. Acute renal failure 4. Sepsis 5. Chronic back wound 6. anemia of chronic disease Plan Continue the current supports as now Antibiotics Taper and wean off pressors ANANDA MINAYA MD August 27, 2024 00:03
[2024-08-27] MEDS: midazolam 1 mg/ML 2ml injection ONE (02:04)
[2024-08-27] MEDS: midazolam 1 mg/ML 2ml injection IV ONE ×2 (02:08→03:24)
[2024-08-27 03:33] LABS: ABG BASE EXCESS 0.9 mmol/L (-2.0-3.0); ABG PCO2 (T) 38.6 mmHg (35.0-48.0); ABG PH (T) 7.431 (7.350-7.450); ABG PO2 (T) 69.4 mmHg (83.0-108.0); FCOHb 1.1 % (0.5-1.5); FHHb 4.9 % (0.0-5.0); FMetHb 0.3 % (0.0-1.5); FO2Hb 93.7 % (94.0-98.0); MODE PRVC; PATIENT TEMPERATURE 37.3; PEEP 10 cm H2O; RESPIRATORY RATE 30 b/min; TIDAL VOLUME 300 mL; TOTAL HEMOGLOBIN 10.5 G/dl (13.5-17.5)
[2024-08-27 03:38] LABS: BASOPHILS % (AUTO) 0.1 % (0-1); EOSINOPHILS % (AUTO) 0 % (0-6); HEMATOCRIT 28.3 % (42.0-52.0); HEMOGLOBIN 9.5 g/dl (14.0-17.9); LYMPHOCYTES # (AUTO) 0.3 X10'3 (1.1-4.8); LYMPHOCYTES % (AUTO) 4.7 % (21-51); MEAN CORPUSCULAR HEMOGLOBIN 28.2 PG (27.0-31.0); MEAN CORPUSCULAR HGB CONC 33.5 g/dL (33.0-36.5); MEAN CORPUSCULAR VOLUME 84.2 FL (78-98); MEAN PLATELET VOLUME 7.6 FL (7.4-10.4); MONOCYTES # (AUTO) 0.3 X10'3 (0-0.9); NEUTROPHILS # (AUTO) 6.5 X10'3 (1.8-7.7); NEUTROPHILS % (AUTO) 91.2 % (42-75); PLATELET COUNT 182 X10'3 (140-440); RED BLOOD COUNT 3.36 X10'6 (4.70-6.10); RED CELL DISTRIBUTION WIDTH 16.7 % (11.5-14.5); WHITE BLOOD COUNT 7.1 X10'3 (4.5-11.0)
[2024-08-27 03:51] LABS: ALANINE AMINOTRANSFERASE 20 U/L (12-78); ALBUMIN 1.2 G/DL (3.4-5.0); ALBUMIN/GLOBULIN RATIO 0.3 (1.1-1.5); ALKALINE PHOSPHATASE 299 IU/L (46-116); ANION GAP 10 (8-16); ASPARTATE AMINO TRANSFERASE 23 U/L (10-37); BILIRUBIN,TOTAL 0.4 MG/DL (0.1-1.0); BLOOD UREA NITROGEN 74 MG/DL (7-18); BUN/CREATININE RATIO 33.2 (10.0-20.0); CALCIUM 8.4 MG/DL (8.5-10.1); CHLORIDE 97 MMOL/L (99-107); CREATININE 2.23 MG/DL (0.60-1.10); POTASSIUM 3.9 MMOL/L (3.5-5.1); SODIUM 132 MMOL/L (135-145); TOTAL CARBON DIOXIDE 25.5 MMOL/L (24-32); TOTAL PROTEIN 5.6 G/DL (6.4-8.2); eCRCL 33 ML/MIN; eGFR 29 ML/MIN
[2024-08-27 03:55] LABS: GLUCOSE 512 MG/DL (70-104)
[2024-08-27] MEDS: FENTANYL-0.9 % NACL/PF 100 ML IV SCH (04:51)
--- NOTE | 2024-08-27 06:22 | RADIOLOGY REPORT ---
EXAM: XR Chest, 1 View CLINICAL INDICATION: ET tube TECHNIQUE: Frontal view of the chest. COMPARISON: DI CHEST,SINGLE VIEW on DOS: 08/26/24, DI CHEST,SINGLE VIEW on DOS: 08/25/24, DI CHEST,SI NGLE VIEW on DOS: 08/24/24, DI CHEST,SINGLE VIEW on DOS: 08/23/24, DI CHEST,SINGLE VIEW on DOS: 08/23/24 FINDINGS: LUNGS AND PLEURAL SPACES: Pulmonary congestion and edema. Pneumonia cannot be excluded. No pneumot horax. HEART: Unremarkable. No cardiomegaly. MEDIASTINUM: Unremarkable. Normal mediastinal contour. BONES/JOINTS: Unremarkable. No acute fracture. TUBES, LINES AND DEVICES: Right internal jugular central venous catheter tip in the superior vena c prema. The endotracheal tube (ETT) is in satisfactory position. Enteric tube tip cannot be seen but i s below the diaphragm. OTHER FINDINGS: . IMPRESSION: Pulmonary congestion and edema. Pneumonia cannot be excluded.
[2024-08-27] MEDS: midazolam 1 mg/ML 2ml injection IV PRN (07:39)
[2024-08-27] MEDS: ferrous sulfate 300mg/5ml UD oral liquid OGT SCH (07:40)
[2024-08-27] MEDS: insulin glargine (Lantus) VIAL- multi-dose SQ SCH (07:48)
[2024-08-27 08:00] LABS: MAGNESIUM 1.9 MG/DL (1.5-2.4); PHOSPHORUS 3.6 MG/DL (2.3-4.5)
[2024-08-27] MEDS: dexmedetomidin/NS 400mcg/100ml 100 ML IV SCH (08:14)
--- NOTE | 2024-08-27 09:22 | PROGRESS NOTE ---
Progress Note Dictate Providers to CC ~ Subjective Subjective: Now off pressors. Sedated with fentanyl. Oxygenation a bit worse. On enteral feedings. No fever. Objective Objective: Afebrile on 60% FiO2 with PEEP 10 GENERAL: Elderly male sedated and intubated NECK: Right internal jugular central venous catheter in place. LUNGS: Mildly coarse breath sounds bilaterally. HEART: Regular rate and rhythm ABDOMEN: Soft without significant distention. EXTREMITIES: With some edema. BACK: He has a large open wound with granulation tissue Lab Results: 08/27/24 0315 08/27/24 0315 Problem\Assessment\Plan Additional Plan 1. Acute respiratory failure with bilateral pulmonary opacities, concerning for hospital-acquired pneumonia He had been receiving high-dose daptomycin, which can rarely cause eosinophilic pneumonia 2. Severe sepsis with leukocytosis and elevated procalcitonin - WBC improved but procalcitonin back up 3. Acute kidney injury with creatinine up to 2.2 4. MRSA sepsis, requiring hospitalization at [place] in mid July He did take quite a bit of time to clear his blood, but I believe that was accomplished around 08/09 Plans were made to complete an 8-week course on 10/03. Transesophageal echo was negative. 5. Thoracic spine infection with large epidural abscess from T5-T12 s/p drainage/decompression with posterior instrumentation and fusion T10-L2 6. Large open wound at back 7. Diabetes mellitus type 2 8. MRSA colonization Continue vancomycin and cefepime Follow procalcitonin Corticosteroid with taper per dependency case manager Diuretics per dependency case manager He is going to be transitioned to long-term oral therapy when IV antibiotics completed for MRSA HSIVAM MACE MD August 27, 2024 09:22
[2024-08-27] MEDS ORDERED: insulin glargine (Lantus) pen - multi-dose SQ SCH ×2 (09:50→21:00)
[2024-08-27] MEDS ORDERED: morphine 10mg/ml inj. IV PRN (11:00)
[2024-08-27] MEDS ORDERED: LORazepam 2 mg/ml vial IV PRN (11:00)
--- NOTE | 2024-08-27 11:53 | PROGRESS NOTE ---
Daily Progress Note Providers to CC ~ Mir-Non Protocol Mir Indications Met/Not Met: F/C Indications Met Antibiotic Timeout Antibiotic Ordered?: No Subjective Patient examined at bedside in the morning. Decision was made for comfort care. Objective Vital Signs Date Time Temp Pulse Resp B/P (MAP) Pulse Ox O2 Delivery O2 Flow Rate FiO2 08/27/24 10:52 95 30 95 40 08/27/24 10:51 Mechanical Ventilator 08/27/24 08:14 184/96 08/27/24 06:00 99.3 08/23/24 07:32 0 Result Diagram: 08/27/2431408/27/24314 Physical Exam General: sedated, intubated HEENT: Normocephalic, PERRLA Neck: Supple, trachea midline, no JVD Chest: Crackles b/l lungs Cardiovascular: RRR GI: Soft and nontender Extremities: No cyanosis/clubbing/or edema VENIPUNCTURIST: sedated Musculoskeletal: No paraspinal muscle tenderness, no muscle spasm Skin: Warm and intact Coagulation Studies Laboratory Tests Test 08/22/24 18:16 Prothrombin Time 10.5 SECONDS (9.0-12.0) INR International Normalized Ratio 1.0 INR Activated Partial Thromboplast Time 36 SECONDS (22-32) H Coagulation Comments Problem\Assessment\Plan Bilateral pneumonia, community-acquired mixed kenneth Gram-positive Gram-negative Sepsis ARDS Acute hypoxic respiratory failure Septic shock NIDDM Hyponatremia UTI, complicated A right side posterior chest abscess Acute decompensated systolic heart failure Chronic pain syndrome -08/27: decision was made for comfort care Date of Service: August 27, 2024 Billing Provider: DENNIS NGUYEN Common Visit Codes: [id number] INP/OBS CARE(HIGH) DENNIS NGUYEN August 27, 2024 11:53
[2024-08-27] MEDS: morphine 10mg/ml inj. IV PRN (12:06)
[2024-08-27] MEDS: LORazepam 2 mg/ml vial IV PRN (12:07)
[2024-08-27] MEDS ORDERED: methylPREDNISolone sod succ 125mg/2ml vial IV SCH (16:00)
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
[2024-08-28] MEDS ORDERED: zinc sulfate 220mg capsule OGT SCH (08:00)
[2024-08-31] MEDS ORDERED: NORepinephrine 8mg/ 250ml NS 250 ML IV PRN (03:20)
== END 2024-08-27 17:23 | DRG 870 ==
LOC: ER 12:49 → ED HOLD 17:15 → CICU 2S 08-23 09:29
PROVIDERS: ADMIT Family Medicine; ATTEND Family Medicine
PROC: 5A1955Z Respiratory Ventilation, Greater than 96 Consecutive Hours (ICD-10-PCS; principal; 2024-08-22)
PROC: 0BH17EZ Insertion of Endotracheal Airway into Trachea, Via Natural or Artificial Opening (ICD-10-PCS; 2024-08-22)
PROC: 02HV33Z Insertion of Infusion Device into Superior Vena Cava, Percutaneous Approach (ICD-10-PCS; 2024-08-22)
PROC: 5A09357 Assistance with Respiratory Ventilation, Less than 24 Consecutive Hours, Continuous Positive Airway Pressure (ICD-10-PCS; 2024-08-22)
PROC: 30233N1 Transfusion of Nonautologous Red Blood Cells into Peripheral Vein, Percutaneous Approach (ICD-10-PCS; 2024-08-24)
DX: A41.02 Sepsis due to Methicillin resistant Staphylococcus aureus (principal); J15.69 Pneumonia due to other Gram-negative bacteria; I50.23 Acute on chronic systolic (congestive) heart failure; R65.21 Severe sepsis with septic shock; G06.1 Intraspinal abscess and granuloma; J80 Acute respiratory distress syndrome; N17.0 Acute kidney failure with tubular necrosis; J15.9 Unspecified bacterial pneumonia; E87.1 Hypo-osmolality and hyponatremia; I13.0 Hypertensive heart and chronic kidney disease with heart failure and stage 1 through stage 4 chronic kidney disease, or unspecified chronic kidney disease; N39.0 Urinary tract infection, site not specified; J44.0 Chronic obstructive pulmonary disease with (acute) lower respiratory infection; E11.22 Type 2 diabetes mellitus with diabetic chronic kidney disease; E11.42 Type 2 diabetes mellitus with diabetic polyneuropathy; K21.9 Gastro-esophageal reflux disease without esophagitis; G89.4 Chronic pain syndrome; S31.000A Unspecified open wound of lower back and pelvis without penetration into retroperitoneum, initial encounter; X58.XXXA Exposure to other specified factors, initial encounter; E78.5 Hyperlipidemia, unspecified; D72.10 Eosinophilia, unspecified; D63.1 Anemia in chronic kidney disease; E11.65 Type 2 diabetes mellitus with hyperglycemia; Z79.899 Other long term (current) drug therapy; Z79.82 Long term (current) use of aspirin; Z88.8 Allergy status to other drugs, medicaments and biological substances; Y93.89 Activity, other specified; Y92.89 Other specified places as the place of occurrence of the external cause; Y99.8 Other external cause status; Z51.5 Encounter for palliative care
CPT/HCPCS: 36415; 36430; 36600; 71045; 71250; 80048; 80053; 80202; 81001; 82570; 82728; 82803; 82948; 83036; 83540; 83550; 83605; 83735; 83880; 83930; 83935; 84100; 84134; 84145; 84156; 84300; 84443; 84478; 84484; 84540; 85007; 85008; 85018; 85025; 85610; 85730; 86885; 86900; 86901; 86920; 87040; 87070; 87081; 87088; 87207; 93005; 93306; 94002; 94003; 94640; 94660; 94760; 96365; 96372; 99291; A4314; A4333; A4615; A6212; A6213; A6223; A6243; A6250; A6253; A6258; A6446; A6449; A7015; C1751; G0378; J0692; J1644; J1815; J1940; J2060; J2250; J2270; J2274; J2704; J2919; J3010; J3370; J3372; J3490; J7030; J7040; J7070; J7120; P9016; P9047